=== PATIENT | male | born 1965 | race Caucasian/White ===

== ENCOUNTER 2021-03-31 06:41 | Outpatient (CLI) | payer SELFPAY ==
[2021-03-31 08:06] LABS: Alanine Aminotransferase 27 U/L (4-50); Albumin Level 4.4 g/dL (3.5-5.1); Alkaline Phosphatase 35 U/L (38-126); Anion Gap 10 mmol/L (8-16); Aspartate Amino Transferase 36 U/L (17-59); Bilirubin,Total 1.4 mg/dL (0.2-1.3); Blood Urea Nitrogen 18 mg/dL (9-20); Calcium 9.2 mg/dL (8.4-10.2); Carbon Dioxide 24 mmol/L (22-30); Chloride 104 mmol/L (98-107); Cholesterol 197 mg/dL (0-200); Estimated Glomerular Filt Rate > 60; Glucose 90 mg/dL (75-110); HDL Direct 46 mg/dL; LDL Cholesterol Direct 118 mg/dL; Sodium 138 mmol/L (137-145); Triglycerides 132 mg/dL (<150)
[2021-03-31 08:20] LABS: Potassium 4.6 mmol/L (3.4-5.0)
== END 2021-03-31 06:42 | disposition home or self-care (01) ==
PROVIDERS: Visit Provider Internal Medicine Cardiovascular Disease
DX: I42.8 Other cardiomyopathies (principal); E66.9 Obesity, unspecified
CPT/HCPCS: 36415; 80053; 80061

== ENCOUNTER 2023-09-06 07:13 | Outpatient (CLI) | payer SELFPAY ==
[2023-09-06 08:32] LABS: Alanine Aminotransferase 26 U/L (6-50); Albumin Level 4.5 g/dL (3.5-5.1); Alkaline Phosphatase 45 U/L (38-126); Anion Gap 8 mmol/L (8-16); Aspartate Amino Transferase 31 U/L (17-59); Bilirubin,Total 1.3 mg/dL (0.2-1.3); Blood Urea Nitrogen 19 mg/dL (9-20); Calcium 9.2 mg/dL (8.4-10.2); Carbon Dioxide 28 mmol/L (22-30); Chloride 104 mmol/L (98-107); Cholesterol 248 mg/dL (0-200); Estimated Glomerular Filt Rate > 60; Glucose 101 mg/dL (65-110); HDL Direct 43 mg/dL; Potassium 4.3 mmol/L (3.4-5.0); Sodium 140 mmol/L (137-145); Triglycerides 104 mg/dL (<150)
[2023-09-06 08:43] LABS: LDL Cholesterol Direct 147 mg/dL
[2023-09-06 09:14] LABS: Thyroid Stimulating Hormone Reflex 0.854 uIU/mL (0.465-4.68)
== END 2023-09-06 07:14 | disposition home or self-care (01) ==
LOC: ANHLAB 07:13
PROVIDERS: Visit Provider Internal Medicine Cardiovascular Disease
DX: I42.8 Other cardiomyopathies (principal)
CPT/HCPCS: 36415; 80053; 80061; 84443

== ENCOUNTER 2024-11-17 10:45 | Inpatient (IN) | payer SELFPAY ==
[2024-11-17] VITALS (30 sets, daily range): BP systolic 156–192; BP diastolic 91–116; PULSE 91–113; RESP 15–30; TEMP 36.4–37; O2SAT 91–99; BMI 39.6
--- NOTE | ~2024-11-17 | XR_ITS ---
Clinical Indication: Shortness of breath PA and lateral views of the chest: Comparison: 12/24/2016 Findings: Hazy right upper lobe airspace disease present. Left lung clear. Cardiomediastinal silhoue tte is within normal limits. Bones and soft tissues are unremarkable. Impression: Right upper lobe pneumonia. Reviewed, dictated and finalized at [facility]. 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
--- NOTE | ~2024-11-17 | CT_ITS ---
EXAMINATION: CTA chest PE protocol DATE: 11/17/2024 15:15 INDICATION: elev dimer; possible hemoptysis TECHNIQUE: Computed tomography angiography (CTA) of the chest was performed with 100 mL Omnipaque-350 intravenous contrast timed to evaluate the pulmonary arteries. Coronal maximum intensity projection 3D-reconstructions were created by the technologist. The dose-length product (DLP) was 1057.63 mGy-cm . Automated exposure control and iterative reconstruction technique were employed. COMPARISON: 12/24/2016; x-ray chest 11/17/2024. FINDINGS: Lung parenchyma and airways: Acinar opacities in the right upper and middle lobes. Dependent left low er lobe atelectasis. Patent airways. Pleura: Small bilateral pleural fluid collections. Thoracic inlet, axillae and chest wall: Unremarkable. Thoracic aorta: No significant dilation. No dissection. Mild arch calcification. Mediastinum: Mildly dilated central pulmonary arteries as can be seen with pulmonary arterial hyperte nsion. Enlarged right paratracheal node. Heart and pericardium: Cardiomegaly. Coronary artery calcifications: Mild. Upper abdomen: No significant finding. Bones: No acute osseous finding. Pulmonary arteries: Study quality: Adequate. No pulmonary emboli detected. IMPRESSION: No CT evidence of acute pulmonary embolus. Right upper and middle lobe opacities likely representing infection and/or aspiration. Mediastinal ly mphadenopathy. Small bilateral pleural effusions. Reviewed, dictated and finalized at location [facility]. DISPATCHER IMPRESSION: No CT evidence of acute pulmonary embolus. Right upper and middle lobe opacities likely representing infection and/or aspi ration. Mediastinal lymphadenopathy. Small bilateral pleural effusions.
--- NOTE | 2024-11-17 12:16 | ED.SOB ---
HPI - SOB/Dyspnea General Chief Complaint: Shortness of Breath/Dyspnea <Katy Barajas PA-C - Last Filed: 11/17/24 12:23> Stated Complaint: I feel like I have pneumonia <Katy Barajas PA-C - Last Filed: 11/17/24 12:23> Time Seen by Provider: 11/17/24 13:57 <Katy Barajas PA-C - Last Filed: 11/17/24 12:23> Focused HPI: 59 y/o M with a hx CHF, HTN presents to the ED for exertional dyspnea and productive cough for 2 days. No history of COPD or asthma. He does not smoke. Denies chest pain or fever, nausea or vomiting. Denies lower extremity edema, history of VTE, hemoptysis. GENERAL: Well-appearing, well-nourished, and in no acute distress. HEAD: Normocephalic, atraumatic. CHEST: Coarse breath sounds in the left lower lung field. No respiratory distress HEART: Regular rate and rhythm.? NEURO: ?Alert and oriented x3. Patient screened in triage and initial orders placed.? ?Additional care and disposition to be based upon?diagnostic testing and treatment. <Katy Barajas PA-C - Last Filed: 11/17/24 12:23> Source: patient and family <Tana Chu MD - Last Filed: 11/19/24 06:27> Mode of arrival: ambulatory <Tana Chu MD - Last Filed: 11/19/24 06:27> Limitations: no limitations <Tana Chu MD - Last Filed: 11/19/24 06:27> History of Present Illness HPI Narrative: Concur with the above the following additions/corrections: Patient presents with concern that he could have pneumonia based on the fact that he has had a cough and shortness of breath for the past 2 days. The cough has been productive of sputum. He does not know if he has had hemoptysis because when he coughs there has been some discoloration of the sputum that has been slightly reddish sure brown in color. He had attributed this to the fact that he had been drinking a special tea made of cloves and cinnamon and elderberry but could not be certain. No underlying respiratory conditions and has never had pneumonia before to his knowledge. He does have a history of hypertension but has not been taking his medications. He has had a subjective fever but when his temperature was measured at home he was not febrile. No history of a DVT or PE. Denies any chest pain. He did have congestive heart failure once approximately 7 years ago but states that there was resolution of this. His last cardiac catheterization was with Dr Fajardo at that time. <Tana Chu MD - Last Filed: 11/19/24 06:27> Related Data Home Medications: Home Medications ?Medication ?Instructions ?Recorded ?Confirmed ?Last Taken ?Type No Home Medications 11/17/24 11/17/24 Unknown History <Katy Barajas PA-C - Last Filed: 11/17/24 12:23> Allergies/Adverse Reactions: Allergies Allergy/AdvReac Type Severity Reaction Status Date / Time poison mateo extract Allergy Intermediate HIVES Verified 08/19/24 15:08 poison oak extract Allergy Unknown Unknown Verified 08/19/24 15:08 <Katy Barajas PA-C - Last Filed: 11/17/24 12:23> FOR[facility]LY [facility] Past Medical History Medical History: Medical History Hypertension Heart failure diagnosed approximately 2017 <Katy Barajas PA-C - Last Filed: 11/17/24 12:23> Surgical History Surgical History: Surgical History History of cardiac cath approx 2017 H/O lumbar discectomy <Katy Barajas PA-C - Last Filed: 11/17/24 12:23> Social History Social History: Social History Smoking status: Never smoker Alcohol intake: current Drinks per week: 1 Substance use: never Substance use type: does not use Do You Feel Safe in your Home?: Yes Lack of Transportation: No Lack of Food: Never True Current Housing: I Have Housing Concerned About Future Housing: No Difficulty Paying Gas/Electric Bills: No Difficulty Paying for Meds: No Currently Unemployed: No Education: High School Diploma/GED Difficulty w/ Childcare or Family Care: No Living arrangements: with family Spiritual care concerns: No <Katy Barajas PA-C - Last Filed: 11/17/24 12:23> Exam Narrative: GENERAL: Well-appearing, well-nourished, and in no acute distress. HEAD: Normocephalic, atraumatic. EYES: Non injected, non icteric ENT: Nares clear, no rhinorrhea or epistaxis. NECK: Supple. CHEST: Speaking in full sentences. No respiratory distress. Lungs clear to auscultation bilaterally without wheezes or crackles. HEART: Tachycardic rate and rhythm. . ABDOMEN: Soft, nondistended. EXTREMITIES: Normal range of motion. No lower extremity edema. SKIN: Warm, dry, no rash. NEURO: No focal deficits. Alert and oriented x3. PSYCH: Normal mood and affect. <Tana Chu MD - Last Filed: 11/19/24 06:27> Course Vital Signs Vital signs: Vital Signs Temperature 97.6 F 11/17/24 10:49 Pulse Rate 113 H 11/17/24 10:49 Respiratory Rate 16 11/17/24 10:49 Blood Pressure 163/100 H 11/17/24 10:49 Pulse Oximetry 94 11/17/24 10:49 Temperature 98.8 F 11/19/24 04:09 Pulse Rate 72 11/19/24 06:00 Respiratory Rate 18 11/19/24 04:09 Blood Pressure 118/66 11/19/24 04:09 Pulse Oximetry 98 11/19/24 04:09 Oxygen Delivery Room Air 11/19/24 04:00 <Katy Barajas PA-C - Last Filed: 11/17/24 12:23> Vital Signs Temperature 97.6 F 11/17/24 10:49 Pulse Rate 113 H 11/17/24 10:49 Respiratory Rate 16 11/17/24 10:49 Blood Pressure 163/100 H 11/17/24 10:49 Pulse Oximetry 94 11/17/24 10:49 Temperature 98.8 F 11/19/24 04:09 Pulse Rate 72 11/19/24 06:00 Respiratory Rate 18 11/19/24 04:09 Blood Pressure 118/66 11/19/24 04:09 Pulse Oximetry 98 11/19/24 04:09 Oxygen Delivery Room Air 11/19/24 04:00 <Tana Chu MD - Last Filed: 11/19/24 06:27> MDM - SOB/Dyspnea MDM Narrative Medical decision making narrative: Patient presents with concern that he might have pneumonia given he has had a cough and shortness of breath for 2 days. In the emergency department he is afebrile signs notable for tachycardia and hypertension. Attempted to use YEARS Algorithm given Dimer elevated but <1 however patient can not exclude hemoptysis as they have been coughing with reddish tinged sputum (possibly felt to be due to the color of the tea drinking). CT PE study ordered. Patient has an NSTEMI with elevated troponin. Repeat troponin and 324 aspirin ordered. Leukocytosis and thrombocytosis. Evidence of pneumonia initially on chest x-ray and with better differentiation on CT. 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 BNP is elevated but patient otherwise does not appear to be volume overloaded both on chest x-ray or on physical exam. He is without chest pain. Given the elevated troponin, patient will require admission. This is discussed with him and he is amenable. Discussed with on-call hospitalist. Will require IMU for NSTEMI. <Tana Chu MD - Last Filed: 11/19/24 06:27> Differential Diagnosis Differential diagnosis: Likely congestive heart failure, community acquired pneumonia, pulmonary embolism and other (ACS) <Tana Chu MD - Last Filed: 11/19/24 06:27> Lab Data Attestation: I reviewed the patient's lab results. <Tana Chu MD - Last Filed: 11/19/24 06:27> Lab results narrative: Trace ketonuria <Tana Chu MD - Last Filed: 11/19/24 06:27> Result diagrams: 11/19/24 04:27 11/19/24 04:27 <Katy Barajas PA-C - Last Filed: 11/17/24 12:23> Labs: Lab Results 11/17/24 11/17/24 11/17/24 Range/Units 12:57 13:16 13:16 WBC 15.8 H (4.5-10.0) K/mm3 RBC 5.89 (4.6-6.20) M/mm3 Hgb 16.6 (14.0-18.0) g/dL Hct 50.1 (42.0-52.0) % MCV 85.1 (80-100) fl MCH 28.2 (26-34) pg MCHC 33.1 (32-36) g/dl RDW 14.1 (11.5-14.5) % Plt Count 381 H (150-375) k/mm3 MPV 10.3 (7.4-10.4) fl Immature Gran % (Auto) 0.4 (0-0.5) % Neut % (Auto) 86.7 H (45.5-73.1) % Lymph % (Auto) 6.2 L (18.3-44.2) % [place] % (Auto) 6.1 (2.6-8.5) % Eos % (Auto) 0.1 (0-4.4) % Baso % (Auto) 0.5 (0.2-1.2) % Lymph # (Auto) 0.97 (0.9-3.2) K/mm3 [place] # (Auto) 1.0 H (0.1-0.6) K/mm3 Eos # (Auto) 0.0 (0-0.3) K/mm3 Baso # (Auto) 0.1 (0.0-0.1) K/mm3 Abs Immat Gran (auto) 0.06 H (0.00-0.031) K/mm3 Absolute Neuts (auto) 13.7 H (1.3-6.7) K/mm3 Absolute Nucleated RBC 0.000 (0.0-0.012) K/mm3 Nucleated RBC % 0.0 (0.0-0.2) % PT 13.0 (11.1-14.7) Seconds INR 0.9 APTT 25.6 (22.3-36.8) Seconds D-Dimer 0.92 H (<0.48) ug/mL Sodium Cancelled 136 L Potassium Cancelled Chloride Carbon Dioxide Anion Gap BUN Creatinine Estim Creat Clear Calc Estimated GFR Glucose Calcium Magnesium (1.6-2.3) mg/dL Total Bilirubin AST ALT Alkaline Phosphatase Troponin I (0.000-0.034) ng/mL NT-Pro-B Natriuret Pep Total Protein Albumin Urine Color (Yellow) Urine Appearance (Clear) Urine pH (5.0-9.0) Ur Specific [place] (1.001-1.035) Urine Protein (Negative) mg/dL Urine Glucose (UA) (Negative) mg/dL Urine Ketones (Negative) mg/dL Ur Blood (Man) (Negative) Urine Nitrate (Negative) Urine Bilirubin (Negative) Urine Urobilinogen (<2.0) mg/dL Leukocyte Esterase Rfl (Negative) BLUE/UL Urine RBC (0-2) /hpf Urine WBC (0-3) /hpf Ur Squamous Epith Cells (Few) /hpf Urine Bacteria /hpf Urine Casts Influenza A (RT-PCR) Negative (Negative) Influenza B (RT-PCR) Negative (Negative) RSV (RT-PCR) Negative (Negative) SARS-CoV-2 RNA (RT-PCR) Negative (Negative) 11/17/24 11/17/24 11/17/24 Range/Units 13:16 13:16 13:16 WBC (4.5-10.0) K/mm3 RBC (4.6-6.20) M/mm3 Hgb (14.0-18.0) g/dL Hct (42.0-52.0) % MCV (80-100) fl MCH (26-34) pg MCHC (32-36) g/dl RDW (11.5-14.5) % Plt Count (150-375) k/mm3 MPV (7.4-10.4) fl Immature Gran % (Auto) (0-0.5) % Neut % (Auto) (45.5-73.1) % Lymph % (Auto) (18.3-44.2) % [place] % (Auto) (2.6-8.5) % Eos % (Auto) (0-4.4) % Baso % (Auto) (0.2-1.2) % Lymph # (Auto) (0.9-3.2) K/mm3 [place] # (Auto) (0.1-0.6) K/mm3 Eos # (Auto) (0-0.3) K/mm3 Baso # (Auto) (0.0-0.1) K/mm3 Abs Immat Gran (auto) (0.00-0.031) K/mm3 Absolute Neuts (auto) (1.3-6.7) K/mm3 Absolute Nucleated RBC (0.0-0.012) K/mm3 Nucleated RBC % (0.0-0.2) % PT (11.1-14.7) Seconds INR APTT (22.3-36.8) Seconds D-Dimer (<0.48) ug/mL Sodium Potassium 4.3 Chloride Cancelled 106 Carbon Dioxide Cancelled 25 Anion Gap Cancelled BUN Creatinine Estim Creat Clear Calc Estimated GFR Glucose Calcium Magnesium (1.6-2.3) mg/dL Total Bilirubin AST ALT Alkaline Phosphatase Troponin I (0.000-0.034) ng/mL NT-Pro-B Natriuret Pep Total Protein Albumin Urine Color (Yellow) Urine Appearance (Clear) Urine pH (5.0-9.0) Ur Specific [place] (1.001-1.035) Urine Protein (Negative) mg/dL Urine Glucose (UA) (Negative) mg/dL Urine Ketones (Negative) mg/dL Ur Blood (Man) (Negative) Urine Nitrate (Negative) Urine Bilirubin (Negative) Urine Urobilinogen (<2.0) mg/dL Leukocyte Esterase Rfl (Negative) BLUE/UL Urine RBC (0-2) /hpf Urine WBC (0-3) /hpf Ur Squamous Epith Cells (Few) /hpf Urine Bacteria /hpf Urine Casts Influenza A (RT-PCR) (Negative) Influenza B (RT-PCR) (Negative) RSV (RT-PCR) (Negative) SARS-CoV-2 RNA (RT-PCR) (Negative) 11/17/24 11/17/24 11/17/24 Range/Units 13:16 13:16 13:16 WBC (4.5-10.0) K/mm3 RBC (4.6-6.20) M/mm3 Hgb (14.0-18.0) g/dL Hct (42.0-52.0) % MCV (80-100) fl MCH (26-34) pg MCHC (32-36) g/dl RDW (11.5-14.5) % Plt Count (150-375) k/mm3 MPV (7.4-10.4) fl Immature Gran % (Auto) (0-0.5) % Neut % (Auto) (45.5-73.1) % Lymph % (Auto) (18.3-44.2) % [place] % (Auto) (2.6-8.5) % Eos % (Auto) (0-4.4) % Baso % (Auto) (0.2-1.2) % Lymph # (Auto) (0.9-3.2) K/mm3 [place] # (Auto) (0.1-0.6) K/mm3 Eos # (Auto) (0-0.3) K/mm3 Baso # (Auto) (0.0-0.1) K/mm3 Abs Immat Gran (auto) (0.00-0.031) K/mm3 Absolute Neuts (auto) (1.3-6.7) K/mm3 Absolute Nucleated RBC (0.0-0.012) K/mm3 Nucleated RBC % (0.0-0.2) % PT (11.1-14.7) Seconds INR APTT (22.3-36.8) Seconds D-Dimer (<0.48) ug/mL Sodium Potassium Chloride Carbon Dioxide Anion Gap 5 BUN Cancelled 20 Creatinine Cancelled 0.90 Estim Creat Clear Calc Cancelled Estimated GFR Glucose Calcium Magnesium (1.6-2.3) mg/dL Total Bilirubin AST ALT Alkaline Phosphatase Troponin I (0.000-0.034) ng/mL NT-Pro-B Natriuret Pep Total Protein Albumin Urine Color (Yellow) Urine Appearance (Clear) Urine pH (5.0-9.0) Ur Specific [place] (1.001-1.035) Urine Protein (Negative) mg/dL Urine Glucose (UA) (Negative) mg/dL Urine Ketones (Negative) mg/dL Ur Blood (Man) (Negative) Urine Nitrate (Negative) Urine Bilirubin (Negative) Urine Urobilinogen (<2.0) mg/dL Leukocyte Esterase Rfl (Negative) BLUE/UL Urine RBC (0-2) /hpf Urine WBC (0-3) /hpf Ur Squamous Epith Cells (Few) /hpf Urine Bacteria /hpf Urine Casts Influenza A (RT-PCR) (Negative) Influenza B (RT-PCR) (Negative) RSV (RT-PCR) (Negative) SARS-CoV-2 RNA (RT-PCR) (Negative) 11/17/24 11/17/24 11/17/24 Range/Units 13:16 13:16 13:16 WBC (4.5-10.0) K/mm3 RBC (4.6-6.20) M/mm3 Hgb (14.0-18.0) g/dL Hct (42.0-52.0) % MCV (80-100) fl MCH (26-34) pg MCHC (32-36) g/dl RDW (11.5-14.5) % Plt Count (150-375) k/mm3 MPV (7.4-10.4) fl Immature Gran % (Auto) (0-0.5) % Neut % (Auto) (45.5-73.1) % Lymph % (Auto) (18.3-44.2) % [place] % (Auto) (2.6-8.5) % Eos % (Auto) (0-4.4) % Baso % (Auto) (0.2-1.2) % Lymph # (Auto) (0.9-3.2) K/mm3 [place] # (Auto) (0.1-0.6) K/mm3 Eos # (Auto) (0-0.3) K/mm3 Baso # (Auto) (0.0-0.1) K/mm3 Abs Immat Gran (auto) (0.00-0.031) K/mm3 Absolute Neuts (auto) (1.3-6.7) K/mm3 Absolute Nucleated RBC (0.0-0.012) K/mm3 Nucleated RBC % (0.0-0.2) % PT (11.1-14.7) Seconds INR APTT (22.3-36.8) Seconds D-Dimer (<0.48) ug/mL Sodium Potassium Chloride Carbon Dioxide Anion Gap BUN Creatinine Estim Creat Clear Calc 89 Estimated GFR Cancelled > 60 Glucose Cancelled 103 Calcium Cancelled Magnesium (1.6-2.3) mg/dL Total Bilirubin AST ALT Alkaline Phosphatase Troponin I (0.000-0.034) ng/mL NT-Pro-B Natriuret Pep Total Protein Albumin Urine Color (Yellow) Urine Appearance (Clear) Urine pH (5.0-9.0) Ur Specific [place] (1.001-1.035) Urine Protein (Negative) mg/dL Urine Glucose (UA) (Negative) mg/dL Urine Ketones (Negative) mg/dL Ur Blood (Man) (Negative) Urine Nitrate (Negative) Urine Bilirubin (Negative) Urine Urobilinogen (<2.0) mg/dL Leukocyte Esterase Rfl (Negative) BLUE/UL Urine RBC (0-2) /hpf Urine WBC (0-3) /hpf Ur Squamous Epith Cells (Few) /hpf Urine Bacteria /hpf Urine Casts Influenza A (RT-PCR) (Negative) Influenza B (RT-PCR) (Negative) RSV (RT-PCR) (Negative) SARS-CoV-2 RNA (RT-PCR) (Negative) 11/17/24 11/17/24 11/17/24 Range/Units 13:16 13:16 13:16 WBC (4.5-10.0) K/mm3 RBC (4.6-6.20) M/mm3 Hgb (14.0-18.0) g/dL Hct (42.0-52.0) % MCV (80-100) fl MCH (26-34) pg MCHC (32-36) g/dl RDW (11.5-14.5) % Plt Count (150-375) k/mm3 MPV (7.4-10.4) fl Immature Gran % (Auto) (0-0.5) % Neut % (Auto) (45.5-73.1) % Lymph % (Auto) (18.3-44.2) % [place] % (Auto) (2.6-8.5) % Eos % (Auto) (0-4.4) % Baso % (Auto) (0.2-1.2) % Lymph # (Auto) (0.9-3.2) K/mm3 [place] # (Auto) (0.1-0.6) K/mm3 Eos # (Auto) (0-0.3) K/mm3 Baso # (Auto) (0.0-0.1) K/mm3 Abs Immat Gran (auto) (0.00-0.031) K/mm3 Absolute Neuts (auto) (1.3-6.7) K/mm3 Absolute Nucleated RBC (0.0-0.012) K/mm3 Nucleated RBC % (0.0-0.2) % PT (11.1-14.7) Seconds INR APTT (22.3-36.8) Seconds D-Dimer (<0.48) ug/mL Sodium Potassium Chloride Carbon Dioxide Anion Gap BUN Creatinine Estim Creat Clear Calc Estimated GFR Glucose Calcium 9.3 Magnesium 1.9 (1.6-2.3) mg/dL Total Bilirubin Cancelled 1.9 H AST Cancelled 30 ALT Cancelled Alkaline Phosphatase Troponin I (0.000-0.034) ng/mL NT-Pro-B Natriuret Pep Total Protein Albumin Urine Color (Yellow) Urine Appearance (Clear) Urine pH (5.0-9.0) Ur Specific [place] (1.001-1.035) Urine Protein (Negative) mg/dL Urine Glucose (UA) (Negative) mg/dL Urine Ketones (Negative) mg/dL Ur Blood (Man) (Negative) Urine Nitrate (Negative) Urine Bilirubin (Negative) Urine Urobilinogen (<2.0) mg/dL Leukocyte Esterase Rfl (Negative) BLUE/UL Urine RBC (0-2) /hpf Urine WBC (0-3) /hpf Ur Squamous Epith Cells (Few) /hpf Urine Bacteria /hpf Urine Casts Influenza A (RT-PCR) (Negative) Influenza B (RT-PCR) (Negative) RSV (RT-PCR) (Negative) SARS-CoV-2 RNA (RT-PCR) (Negative) 11/17/24 11/17/2411/17/24 Range/Units 13:16 13:16 13:16 WBC (4.5-10.0) K/mm3 RBC (4.6-6.20) M/mm3 Hgb (14.0-18.0) g/dL Hct (42.0-52.0) % MCV (80-100) fl MCH (26-34) pg MCHC (32-36) g/dl RDW (11.5-14.5) % Plt Count (150-375) k/mm3 MPV (7.4-10.4) fl Immature Gran % (Auto) (0-0.5) % Neut % (Auto) (45.5-73.1) % Lymph % (Auto) (18.3-44.2) % [place] % (Auto) (2.6-8.5) % Eos % (Auto) (0-4.4) % Baso % (Auto) (0.2-1.2) % Lymph # (Auto) (0.9-3.2) K/mm3 [place] # (Auto) (0.1-0.6) K/mm3 Eos # (Auto) (0-0.3) K/mm3 Baso # (Auto) (0.0-0.1) K/mm3 Abs Immat Gran (auto) (0.00-0.031) K/mm3 Absolute Neuts (auto) (1.3-6.7) K/mm3 Absolute Nucleated RBC (0.0-0.012) K/mm3 Nucleated RBC % (0.0-0.2) % PT (11.1-14.7) Seconds INR APTT (22.3-36.8) Seconds D-Dimer (<0.48) ug/mL Sodium Potassium Chloride Carbon Dioxide Anion Gap BUN Creatinine Estim Creat Clear Calc Estimated GFR Glucose Calcium Magnesium (1.6-2.3) mg/dL Total Bilirubin AST ALT 23 Alkaline Phosphatase Cancelled 69 Troponin I 0.142 H* (0.000-0.034) ng/mL NT-Pro-B Natriuret Pep Cancelled 4390 H Total Protein Cancelled Albumin Urine Color (Yellow) Urine Appearance (Clear) Urine pH (5.0-9.0) Ur Specific [place] (1.001-1.035) Urine Protein (Negative) mg/dL Urine Glucose (UA) (Negative) mg/dL Urine Ketones (Negative) mg/dL Ur Blood (Man) (Negative) Urine Nitrate (Negative) Urine Bilirubin (Negative) Urine Urobilinogen (<2.0) mg/dL Leukocyte Esterase Rfl (Negative) BLUE/UL Urine RBC (0-2) /hpf Urine WBC (0-3) /hpf Ur Squamous Epith Cells (Few) /hpf Urine Bacteria /hpf Urine Casts Influenza A (RT-PCR) (Negative) Influenza B (RT-PCR) (Negative) RSV (RT-PCR) (Negative) SARS-CoV-2 RNA (RT-PCR) (Negative) 11/17/24 11/17/24 11/17/24 Range/Units 13:16 13:16 15:07 WBC (4.5-10.0) K/mm3 RBC (4.6-6.20) M/mm3 Hgb (14.0-18.0) g/dL Hct (42.0-52.0) % MCV (80-100) fl MCH (26-34) pg MCHC (32-36) g/dl RDW (11.5-14.5) % Plt Count (150-375) k/mm3 MPV (7.4-10.4) fl Immature Gran % (Auto) (0-0.5) % Neut % (Auto) (45.5-73.1) % Lymph % (Auto) (18.3-44.2) % [place] % (Auto) (2.6-8.5) % Eos % (Auto) (0-4.4) % Baso % (Auto) (0.2-1.2) % Lymph # (Auto) (0.9-3.2) K/mm3 [place] # (Auto) (0.1-0.6) K/mm3 Eos # (Auto) (0-0.3) K/mm3 Baso # (Auto) (0.0-0.1) K/mm3 Abs Immat Gran (auto) (0.00-0.031) K/mm3 Absolute Neuts (auto) (1.3-6.7) K/mm3 Absolute Nucleated RBC (0.0-0.012) K/mm3 Nucleated RBC % (0.0-0.2) % PT (11.1-14.7) Seconds INR APTT (22.3-36.8) Seconds D-Dimer (<0.48) ug/mL Sodium Potassium Chloride Carbon Dioxide Anion Gap BUN Creatinine Estim Creat Clear Calc Estimated GFR Glucose Calcium Magnesium (1.6-2.3) mg/dL Total Bilirubin AST ALT Alkaline Phosphatase Troponin I (0.000-0.034) ng/mL NT-Pro-B Natriuret Pep Total Protein 8.0 Albumin Cancelled 4.3 Urine Color Yellow (Yellow) Urine Appearance Clear (Clear) Urine pH 6.5 (5.0-9.0) Ur Specific [place] 1.016 (1.001-1.035) Urine Protein Trace (Negative) mg/dL Urine Glucose (UA) Negative (Negative) mg/dL Urine Ketones Trace H (Negative) mg/dL Ur Blood (Man) Negative (Negative) Urine Nitrate Negative (Negative) Urine Bilirubin Negative (Negative) Urine Urobilinogen 0.2 (<2.0) mg/dL Leukocyte Esterase Rfl Negative (Negative) BLUE/UL Urine RBC 0-2 (0-2) /hpf Urine WBC 0-5 (0-3) /hpf Ur Squamous Epith Cells None seen (Few) /hpf Urine Bacteria None seen /hpf Urine Casts 0-2 Influenza A (RT-PCR) (Negative) Influenza B (RT-PCR) (Negative) RSV (RT-PCR) (Negative) SARS-CoV-2 RNA (RT-PCR) (Negative) 11/17/24 Range/Units 16:56 WBC (4.5-10.0) K/mm3 RBC (4.6-6.20) M/mm3 Hgb (14.0-18.0) g/dL Hct (42.0-52.0) % MCV (80-100) fl MCH (26-34) pg MCHC (32-36) g/dl RDW (11.5-14.5) % Plt Count (150-375) k/mm3 MPV (7.4-10.4) fl Immature Gran % (Auto) (0-0.5) % Neut % (Auto) (45.5-73.1) % Lymph % (Auto) (18.3-44.2) % [place] % (Auto) (2.6-8.5) % Eos % (Auto) (0-4.4) % Baso % (Auto) (0.2-1.2) % Lymph # (Auto) (0.9-3.2) K/mm3 [place] # (Auto) (0.1-0.6) K/mm3 Eos # (Auto) (0-0.3) K/mm3 Baso # (Auto) (0.0-0.1) K/mm3 Abs Immat Gran (auto) (0.00-0.031) K/mm3 Absolute Neuts (auto) (1.3-6.7) K/mm3 Absolute Nucleated RBC (0.0-0.012) K/mm3 Nucleated RBC % (0.0-0.2) % PT (11.1-14.7) Seconds INR APTT (22.3-36.8) Seconds D-Dimer (<0.48) ug/mL Sodium Potassium Chloride Carbon Dioxide Anion Gap BUN Creatinine Estim Creat Clear Calc Estimated GFR Glucose Calcium Magnesium (1.6-2.3) mg/dL Total Bilirubin AST ALT Alkaline Phosphatase Troponin I 0.128 H* (0.000-0.034) ng/mL NT-Pro-B Natriuret Pep Total Protein Albumin Urine Color (Yellow) Urine Appearance (Clear) Urine pH (5.0-9.0) Ur Specific [place] (1.001-1.035) Urine Protein (Negative) mg/dL Urine Glucose (UA) (Negative) mg/dL Urine Ketones (Negative) mg/dL Ur Blood (Man) (Negative) Urine Nitrate (Negative) Urine Bilirubin (Negative) Urine Urobilinogen (<2.0) mg/dL Leukocyte Esterase Rfl (Negative) BLUE/UL Urine RBC (0-2) /hpf Urine WBC (0-3) /hpf Ur Squamous Epith Cells (Few) /hpf Urine Bacteria /hpf Urine Casts Influenza A (RT-PCR) (Negative) Influenza B (RT-PCR) (Negative) RSV (RT-PCR) (Negative) SARS-CoV-2 RNA (RT-PCR) (Negative) <Katy Barajas PA-C - Last Filed: 11/17/24 12:23> Lab Results 11/17/24 11/17/24 11/17/24 Range/Units 12:57 13:16 13:16 WBC 15.8 H (4.5-10.0) K/mm3 RBC 5.89 (4.6-6.20) M/mm3 Hgb 16.6 (14.0-18.0) g/dL Hct 50.1 (42.0-52.0) % MCV 85.1 (80-100) fl MCH 28.2 (26-34) pg MCHC 33.1 (32-36) g/dl RDW 14.1 (11.5-14.5) % Plt Count 381 H (150-375) k/mm3 MPV 10.3 (7.4-10.4) fl Immature Gran % (Auto) 0.4 (0-0.5) % Neut % (Auto) 86.7 H (45.5-73.1) % Lymph % (Auto) 6.2 L (18.3-44.2) % [place] % (Auto) 6.1 (2.6-8.5) % Eos % (Auto) 0.1 (0-4.4) % Baso % (Auto) 0.5 (0.2-1.2) % Lymph # (Auto) 0.97 (0.9-3.2) K/mm3 [place] # (Auto) 1.0 H (0.1-0.6) K/mm3 Eos # (Auto) 0.0 (0-0.3) K/mm3 Baso # (Auto) 0.1 (0.0-0.1) K/mm3 Abs Immat Gran (auto) 0.06 H (0.00-0.031) K/mm3 Absolute Neuts (auto) 13.7 H (1.3-6.7) K/mm3 Absolute Nucleated RBC 0.000 (0.0-0.012) K/mm3 Nucleated RBC % 0.0 (0.0-0.2) % PT 13.0 (11.1-14.7) Seconds INR 0.9 APTT 25.6 (22.3-36.8) Seconds D-Dimer 0.92 H (<0.48) ug/mL Sodium Cancelled 136 L Potassium Cancelled Chloride Carbon Dioxide Anion Gap BUN Creatinine Estim Creat Clear Calc Estimated GFR Glucose Calcium Magnesium (1.6-2.3) mg/dL Total Bilirubin AST ALT Alkaline Phosphatase Troponin I (0.000-0.034) ng/mL NT-Pro-B Natriuret Pep Total Protein Albumin Urine Color (Yellow) Urine Appearance (Clear) Urine pH (5.0-9.0) Ur Specific [place] (1.001-1.035) Urine Protein (Negative) mg/dL Urine Glucose (UA) (Negative) mg/dL Urine Ketones (Negative) mg/dL Ur Blood (Man) (Negative) Urine Nitrate (Negative) Urine Bilirubin (Negative) Urine Urobilinogen (<2.0) mg/dL Leukocyte Esterase Rfl (Negative) BLUE/UL Urine RBC (0-2) /hpf Urine WBC (0-3) /hpf Ur Squamous Epith Cells (Few) /hpf Urine Bacteria /hpf Urine Casts Influenza A (RT-PCR) Negative (Negative) Influenza B (RT-PCR) Negative (Negative) RSV (RT-PCR) Negative (Negative) SARS-CoV-2 RNA (RT-PCR) Negative (Negative) 11/17/24 11/17/24 11/17/24 Range/Units 13:16 13:16 13:16 WBC (4.5-10.0) K/mm3 RBC (4.6-6.20) M/mm3 Hgb (14.0-18.0) g/dL Hct (42.0-52.0) % MCV (80-100) fl MCH (26-34) pg MCHC (32-36) g/dl RDW (11.5-14.5) % Plt Count (150-375) k/mm3 MPV (7.4-10.4) fl Immature Gran % (Auto) (0-0.5) % Neut % (Auto) (45.5-73.1) % Lymph % (Auto) (18.3-44.2) % [place] % (Auto) (2.6-8.5) % Eos % (Auto) (0-4.4) % Baso % (Auto) (0.2-1.2) % Lymph # (Auto) (0.9-3.2) K/mm3 [place] # (Auto) (0.1-0.6) K/mm3 Eos # (Auto) (0-0.3) K/mm3 Baso # (Auto) (0.0-0.1) K/mm3 Abs Immat Gran (auto) (0.00-0.031) K/mm3 Absolute Neuts (auto) (1.3-6.7) K/mm3 Absolute Nucleated RBC (0.0-0.012) K/mm3 Nucleated RBC % (0.0-0.2) % PT (11.1-14.7) Seconds INR APTT (22.3-36.8) Seconds D-Dimer (<0.48) ug/mL Sodium Potassium 4.3 Chloride Cancelled 106 Carbon Dioxide Cancelled 25 Anion Gap Cancelled BUN Creatinine Estim Creat Clear Calc Estimated GFR Glucose Calcium Magnesium (1.6-2.3) mg/dL Total Bilirubin AST ALT Alkaline Phosphatase Troponin I (0.000-0.034) ng/mL NT-Pro-B Natriuret Pep Total Protein Albumin Urine Color (Yellow) Urine Appearance (Clear) Urine pH (5.0-9.0) Ur Specific [place] (1.001-1.035) Urine Protein (Negative) mg/dL Urine Glucose (UA) (Negative) mg/dL Urine Ketones (Negative) mg/dL Ur Blood (Man) (Negative) Urine Nitrate (Negative) Urine Bilirubin (Negative) Urine Urobilinogen (<2.0) mg/dL Leukocyte Esterase Rfl (Negative) BLUE/UL Urine RBC (0-2) /hpf Urine WBC (0-3) /hpf Ur Squamous Epith Cells (Few) /hpf Urine Bacteria /hpf Urine Casts Influenza A (RT-PCR) (Negative) Influenza B (RT-PCR) (Negative) RSV (RT-PCR) (Negative) SARS-CoV-2 RNA (RT-PCR) (Negative) 11/17/24 11/17/24 11/17/24 Range/Units 13:16 13:16 13:16 WBC (4.5-10.0) K/mm3 RBC (4.6-6.20) M/mm3 Hgb (14.0-18.0) g/dL Hct (42.0-52.0) % MCV (80-100) fl MCH (26-34) pg MCHC (32-36) g/dl RDW (11.5-14.5) % Plt Count (150-375) k/mm3 MPV (7.4-10.4) fl Immature Gran % (Auto) (0-0.5) % Neut % (Auto) (45.5-73.1) % Lymph % (Auto) (18.3-44.2) % [place] % (Auto) (2.6-8.5) % Eos % (Auto) (0-4.4) % Baso % (Auto) (0.2-1.2) % Lymph # (Auto) (0.9-3.2) K/mm3 [place] # (Auto) (0.1-0.6) K/mm3 Eos # (Auto) (0-0.3) K/mm3 Baso # (Auto) (0.0-0.1) K/mm3 Abs Immat Gran (auto) (0.00-0.031) K/mm3 Absolute Neuts (auto) (1.3-6.7) K/mm3 Absolute Nucleated RBC (0.0-0.012) K/mm3 Nucleated RBC % (0.0-0.2) % PT (11.1-14.7) Seconds INR APTT (22.3-36.8) Seconds D-Dimer (<0.48) ug/mL Sodium Potassium Chloride Carbon Dioxide Anion Gap 5 BUN Cancelled 20 Creatinine Cancelled 0.90 Estim Creat Clear Calc Cancelled Estimated GFR Glucose Calcium Magnesium (1.6-2.3) mg/dL Total Bilirubin AST ALT Alkaline Phosphatase Troponin I (0.000-0.034) ng/mL NT-Pro-B Natriuret Pep Total Protein Albumin Urine Color (Yellow) Urine Appearance (Clear) Urine pH (5.0-9.0) Ur Specific [place] (1.001-1.035) Urine Protein (Negative) mg/dL Urine Glucose (UA) (Negative) mg/dL Urine Ketones (Negative) mg/dL Ur Blood (Man) (Negative) Urine Nitrate (Negative) Urine Bilirubin (Negative) Urine Urobilinogen (<2.0) mg/dL Leukocyte Esterase Rfl (Negative) BLUE/UL Urine RBC (0-2) /hpf Urine WBC (0-3) /hpf Ur Squamous Epith Cells (Few) /hpf Urine Bacteria /hpf Urine Casts Influenza A (RT-PCR) (Negative) Influenza B (RT-PCR) (Negative) RSV (RT-PCR) (Negative) SARS-CoV-2 RNA (RT-PCR) (Negative) 11/17/24 11/17/2424 Range/Units 13:16 13:16 13:16 WBC (4.5-10.0) K/mm3 RBC (4.6-6.20) M/mm3 Hgb (14.0-18.0) g/dL Hct (42.0-52.0) % MCV (80-100) fl MCH (26-34) pg MCHC (32-36) g/dl RDW (11.5-14.5) % Plt Count (150-375) k/mm3 MPV (7.4-10.4) fl Immature Gran % (Auto) (0-0.5) % Neut % (Auto) (45.5-73.1) % Lymph % (Auto) (18.3-44.2) % [place] % (Auto) (2.6-8.5) % Eos % (Auto) (0-4.4) % Baso % (Auto) (0.2-1.2) % Lymph # (Auto) (0.9-3.2) K/mm3 [place] # (Auto) (0.1-0.6) K/mm3 Eos # (Auto) (0-0.3) K/mm3 Baso # (Auto) (0.0-0.1) K/mm3 Abs Immat Gran (auto) (0.00-0.031) K/mm3 Absolute Neuts (auto) (1.3-6.7) K/mm3 Absolute Nucleated RBC (0.0-0.012) K/mm3 Nucleated RBC % (0.0-0.2) % PT (11.1-14.7) Seconds INR APTT (22.3-36.8) Seconds D-Dimer (<0.48) ug/mL Sodium Potassium Chloride Carbon Dioxide Anion Gap BUN Creatinine Estim Creat Clear Calc 89 Estimated GFR Cancelled > 60 Glucose Cancelled 103 Calcium Cancelled Magnesium (1.6-2.3) mg/dL Total Bilirubin AST ALT Alkaline Phosphatase Troponin I (0.000-0.034) ng/mL NT-Pro-B Natriuret Pep Total Protein Albumin Urine Color (Yellow) Urine Appearance (Clear) Urine pH (5.0-9.0) Ur Specific [place] (1.001-1.035) Urine Protein (Negative) mg/dL Urine Glucose (UA) (Negative) mg/dL Urine Ketones (Negative) mg/dL Ur Blood (Man) (Negative) Urine Nitrate (Negative) Urine Bilirubin (Negative) Urine Urobilinogen (<2.0) mg/dL Leukocyte Esterase Rfl (Negative) BLUE/UL Urine RBC (0-2) /hpf Urine WBC (0-3) /hpf Ur Squamous Epith Cells (Few) /hpf Urine Bacteria /hpf Urine Casts Influenza A (RT-PCR) (Negative) Influenza B (RT-PCR) (Negative) RSV (RT-PCR) (Negative) SARS-CoV-2 RNA (RT-PCR) (Negative) 11/17/24 11/17/24 11/17/24 Range/Units 13:16 13:16 13:16 WBC (4.5-10.0) K/mm3 RBC (4.6-6.20) M/mm3 Hgb (14.0-18.0) g/dL Hct (42.0-52.0) % MCV (80-100) fl MCH (26-34) pg MCHC (32-36) g/dl RDW (11.5-14.5) % Plt Count (150-375) k/mm3 MPV (7.4-10.4) fl Immature Gran % (Auto) (0-0.5) % Neut % (Auto) (45.5-73.1) % Lymph % (Auto) (18.3-44.2) % [place] % (Auto) (2.6-8.5) % Eos % (Auto) (0-4.4) % Baso % (Auto) (0.2-1.2) % Lymph # (Auto) (0.9-3.2) K/mm3 [place] # (Auto) (0.1-0.6) K/mm3 Eos # (Auto) (0-0.3) K/mm3 Baso # (Auto) (0.0-0.1) K/mm3 Abs Immat Gran (auto) (0.00-0.031) K/mm3 Absolute Neuts (auto) (1.3-6.7) K/mm3 Absolute Nucleated RBC (0.0-0.012) K/mm3 Nucleated RBC % (0.0-0.2) % PT (11.1-14.7) Seconds INR APTT (22.3-36.8) Seconds D-Dimer (<0.48) ug/mL Sodium Potassium Chloride Carbon Dioxide Anion Gap BUN Creatinine Estim Creat Clear Calc Estimated GFR Glucose Calcium 9.3 Magnesium 1.9 (1.6-2.3) mg/dL Total Bilirubin Cancelled 1.9 H AST Cancelled 30 ALT Cancelled Alkaline Phosphatase Troponin I (0.000-0.034) ng/mL NT-Pro-B Natriuret Pep Total Protein Albumin Urine Color (Yellow) Urine Appearance (Clear) Urine pH (5.0-9.0) Ur Specific [place] (1.001-1.035) Urine Protein (Negative) mg/dL Urine Glucose (UA) (Negative) mg/dL Urine Ketones (Negative) mg/dL Ur Blood (Man) (Negative) Urine Nitrate (Negative) Urine Bilirubin (Negative) Urine Urobilinogen (<2.0) mg/dL Leukocyte Esterase Rfl (Negative) BLUE/UL Urine RBC (0-2) /hpf Urine WBC (0-3) /hpf Ur Squamous Epith Cells (Few) /hpf Urine Bacteria /hpf Urine Casts Influenza A (RT-PCR) (Negative) Influenza B (RT-PCR) (Negative) RSV (RT-PCR) (Negative) SARS-CoV-2 RNA (RT-PCR) (Negative) 11/17/24 11/17/24 11/17/24 Range/Units 13:16 13:16 13:16 WBC (4.5-10.0) K/mm3 RBC (4.6-6.20) M/mm3 Hgb (14.0-18.0) g/dL Hct (42.0-52.0) % MCV (80-100) fl MCH (26-34) pg MCHC (32-36) g/dl RDW (11.5-14.5) % Plt Count (150-375) k/mm3 MPV (7.4-10.4) fl Immature Gran % (Auto) (0-0.5) % Neut % (Auto) (45.5-73.1) % Lymph % (Auto) (18.3-44.2) % [place] % (Auto) (2.6-8.5) % Eos % (Auto) (0-4.4) % Baso % (Auto) (0.2-1.2) % Lymph # (Auto) (0.9-3.2) K/mm3 [place] # (Auto) (0.1-0.6) K/mm3 Eos # (Auto) (0-0.3) K/mm3 Baso # (Auto) (0.0-0.1) K/mm3 Abs Immat Gran (auto) (0.00-0.031) K/mm3 Absolute Neuts (auto) (1.3-6.7) K/mm3 Absolute Nucleated RBC (0.0-0.012) K/mm3 Nucleated RBC % (0.0-0.2) % PT (11.1-14.7) Seconds INR APTT (22.3-36.8) Seconds D-Dimer (<0.48) ug/mL Sodium Potassium Chloride Carbon Dioxide Anion Gap BUN Creatinine Estim Creat Clear Calc Estimated GFR Glucose Calcium Magnesium (1.6-2.3) mg/dL Total Bilirubin AST ALT 23 Alkaline Phosphatase Cancelled 69 Troponin I 0.142 H* (0.000-0.034) ng/mL NT-Pro-B Natriuret Pep Cancelled 4390 H Total Protein Cancelled Albumin Urine Color (Yellow) Urine Appearance (Clear) Urine pH (5.0-9.0) Ur Specific [place] (1.001-1.035) Urine Protein (Negative) mg/dL Urine Glucose (UA) (Negative) mg/dL Urine Ketones (Negative) mg/dL Ur Blood (Man) (Negative) Urine Nitrate (Negative) Urine Bilirubin (Negative) Urine Urobilinogen (<2.0) mg/dL Leukocyte Esterase Rfl (Negative) BLUE/UL Urine RBC (0-2) /hpf Urine WBC (0-3) /hpf Ur Squamous Epith Cells (Few) /hpf Urine Bacteria /hpf Urine Casts Influenza A (RT-PCR) (Negative) Influenza B (RT-PCR) (Negative) RSV (RT-PCR) (Negative) SARS-CoV-2 RNA (RT-PCR) (Negative) 11/17/24 11/17/24 11/17/24 Range/Units 13:16 13:16 15:07 WBC (4.5-10.0) K/mm3 RBC (4.6-6.20) M/mm3 Hgb (14.0-18.0) g/dL Hct (42.0-52.0) % MCV (80-100) fl MCH (26-34) pg MCHC (32-36) g/dl RDW (11.5-14.5) % Plt Count (150-375) k/mm3 MPV (7.4-10.4) fl Immature Gran % (Auto) (0-0.5) % Neut % (Auto) (45.5-73.1) % Lymph % (Auto) (18.3-44.2) % [place] % (Auto) (2.6-8.5) % Eos % (Auto) (0-4.4) % Baso % (Auto) (0.2-1.2) % Lymph # (Auto) (0.9-3.2) K/mm3 [place] # (Auto) (0.1-0.6) K/mm3 Eos # (Auto) (0-0.3) K/mm3 Baso # (Auto) (0.0-0.1) K/mm3 Abs Immat Gran (auto) (0.00-0.031) K/mm3 Absolute Neuts (auto) (1.3-6.7) K/mm3 Absolute Nucleated RBC (0.0-0.012) K/mm3 Nucleated RBC % (0.0-0.2) % PT (11.1-14.7) Seconds INR APTT (22.3-36.8) Seconds D-Dimer (<0.48) ug/mL Sodium Potassium Chloride Carbon Dioxide Anion Gap BUN Creatinine Estim Creat Clear Calc Estimated GFR Glucose Calcium Magnesium (1.6-2.3) mg/dL Total Bilirubin AST ALT Alkaline Phosphatase Troponin I (0.000-0.034) ng/mL NT-Pro-B Natriuret Pep Total Protein 8.0 Albumin Cancelled 4.3 Urine Color Yellow (Yellow) Urine Appearance Clear (Clear) Urine pH 6.5 (5.0-9.0) Ur Specific [place] 1.016 (1.001-1.035) Urine Protein Trace (Negative) mg/dL Urine Glucose (UA) Negative (Negative) mg/dL Urine Ketones Trace H (Negative) mg/dL Ur Blood (Man) Negative (Negative) Urine Nitrate Negative (Negative) Urine Bilirubin Negative (Negative) Urine Urobilinogen 0.2 (<2.0) mg/dL Leukocyte Esterase Rfl Negative (Negative) BLUE/UL Urine RBC 0-2 (0-2) /hpf Urine WBC 0-5 (0-3) /hpf Ur Squamous Epith Cells None seen (Few) /hpf Urine Bacteria None seen /hpf Urine Casts 0-2 Influenza A (RT-PCR) (Negative) Influenza B (RT-PCR) (Negative) RSV (RT-PCR) (Negative) SARS-CoV-2 RNA (RT-PCR) (Negative) 11/17/24 Range/Units 16:56 WBC (4.5-10.0) K/mm3 RBC (4.6-6.20) M/mm3 Hgb (14.0-18.0) g/dL Hct (42.0-52.0) % MCV (80-100) fl MCH (26-34) pg MCHC (32-36) g/dl RDW (11.5-14.5) % Plt Count (150-375) k/mm3 MPV (7.4-10.4) fl Immature Gran % (Auto) (0-0.5) % Neut % (Auto) (45.5-73.1) % Lymph % (Auto) (18.3-44.2) % [place] % (Auto) (2.6-8.5) % Eos % (Auto) (0-4.4) % Baso % (Auto) (0.2-1.2) % Lymph # (Auto) (0.9-3.2) K/mm3 [place] # (Auto) (0.1-0.6) K/mm3 Eos # (Auto) (0-0.3) K/mm3 Baso # (Auto) (0.0-0.1) K/mm3 Abs Immat Gran (auto) (0.00-0.031) K/mm3 Absolute Neuts (auto) (1.3-6.7) K/mm3 Absolute Nucleated RBC (0.0-0.012) K/mm3 Nucleated RBC % (0.0-0.2) % PT (11.1-14.7) Seconds INR APTT (22.3-36.8) Seconds D-Dimer (<0.48) ug/mL Sodium Potassium Chloride Carbon Dioxide Anion Gap BUN Creatinine Estim Creat Clear Calc Estimated GFR Glucose Calcium Magnesium (1.6-2.3) mg/dL Total Bilirubin AST ALT Alkaline Phosphatase Troponin I 0.128 H* (0.000-0.034) ng/mL NT-Pro-B Natriuret Pep Total Protein Albumin Urine Color (Yellow) Urine Appearance (Clear) Urine pH (5.0-9.0) Ur Specific [place] (1.001-1.035) Urine Protein (Negative) mg/dL Urine Glucose (UA) (Negative) mg/dL Urine Ketones (Negative) mg/dL Ur Blood (Man) (Negative) Urine Nitrate (Negative) Urine Bilirubin (Negative) Urine Urobilinogen (<2.0) mg/dL Leukocyte Esterase Rfl (Negative) BLUE/UL Urine RBC (0-2) /hpf Urine WBC (0-3) /hpf Ur Squamous Epith Cells (Few) /hpf Urine Bacteria /hpf Urine Casts Influenza A (RT-PCR) (Negative) Influenza B (RT-PCR) (Negative) RSV (RT-PCR) (Negative) SARS-CoV-2 RNA (RT-PCR) (Negative) <Tana Chu MD - Last Filed: 11/19/24 06:27> Imaging Data Radiologist's impression: Impression: Right upper lobe pneumonia. IMPRESSION: No CT evidence of acute pulmonary embolus. Right upper and middle lobe opacities likely representing infection and/or aspiration. Mediastinal lymphadenopathy. Small bilateral pleural effusions. <Tana Chu MD - Last Filed: 11/19/24 06:27> ECG Data EKG #1: Attestation: I personally reviewed and interpreted this ECG as follows: <Tana Chu MD - Last Filed: 11/19/24 06:27> ECG completion date: 11/17/24 <Tana Chu MD - Last Filed: 11/19/24 06:27> ECG completion time: 12:39 <Tana Chu MD - Last Filed: 11/19/24 06:27> Interpretation: Sinus tachycardia at a rate of 105 beats per minute. OK interval 168. QRS 105. QT/QTC 341/402. Poor R-wave progression across the precordial leads. No T-wave inversions. <Tana Chu MD - Last Filed: 11/19/24 06:27> Discharge Plan Discharge Clinical Impression: Right upper lobe pneumonia, Non-ST elevation [place] (NSTEMI), Leukocytosis, Thrombocytosis, Hyperbilirubinemia, Elevated brain natriuretic peptide (BNP) level, Mediastinal lymphadenopathy, Bilateral pleural effusion <Katy Barajas PA-C - Last Filed: 11/17/24 12:23> Patient Disposition: Still a Patient <ANN MARIE Jasmine Last Filed: 11/17/24 12:23> Condition: Stable <Katy Barajas PA-C - Last Filed: 11/17/24 12:23>
--- NOTE | 2024-11-17 12:17 | ECG_ITS ---
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
[2024-11-17 13:27] LABS: Basophils Absolute Auto 0.1 K/mm3 (0.0-0.1); Basophils Percent Auto 0.5 % (0.2-1.2); Eosinophils Percent Auto 0.1 % (0-4.4); Hematocrit 50.1 % (42.0-52.0); Hemoglobin 16.6 g/dL (14.0-18.0); Immature Granulocyte Absolute 0.06 K/mm3 (0.00-0.031); Immature Granulocyte Percent A 0.4 % (0-0.5); Lymphocytes Absolute Auto 0.97 K/mm3 (0.9-3.2); Lymphocytes Percent Auto 6.2 % (18.3-44.2); Mean Corpuscular HGB Conc 33.1 g/dl (32-36); Mean Corpuscular Hemoglobin 28.2 pg (26-34); Mean Corpuscular Volume 85.1 fl (80-100); Mean Platelet Volume 10.3 fl (7.4-10.4); Monocytes Percent Auto 6.1 % (2.6-8.5); Neutrophils Absolute Auto 13.7 K/mm3 (1.3-6.7); Neutrophils Percent Auto 86.7 % (45.5-73.1); Platelet Count Result 381 k/mm3 (150-375); Red Blood Count 5.89 M/mm3 (4.6-6.20); Red Cell Distribution Width 14.1 % (11.5-14.5); White Blood Count 15.8 K/mm3 (4.5-10.0)
[2024-11-17 13:36] LABS: Alanine Aminotransferase 23 U/L (6-50); Albumin Level 4.3 g/dL (3.5-5.1); Alkaline Phosphatase 69 U/L (38-126); Anion Gap 5 mmol/L (4-12); Aspartate Amino Transferase 30 U/L (17-59); Bilirubin,Total 1.9 mg/dL (0.2-1.3); Blood Urea Nitrogen 20 mg/dL (9-20); Calcium 9.3 mg/dL (8.4-10.2); Carbon Dioxide 25 mmol/L (22-30); Chloride 106 mmol/L (98-107); Estimated CRCL calculation 89 ml/min; Estimated Glomerular Filt Rate > 60; Glucose 103 mg/dL (65-110); Magnesium 1.9 mg/dL (1.6-2.3); Potassium 4.3 mmol/L (3.4-5.0); Sodium 136 mmol/L (137-145)
[2024-11-17 13:38] LABS: INR 0.9
[2024-11-17 13:39] LABS: Partial Thromboplastin Time 25.6 Seconds (22.3-36.8)
[2024-11-17 13:40] LABS: Influenza A QL RT-PCR Negative (Negative); Influenza B QL RT-PCR Negative (Negative); RSV RNA, RT-PCR Negative (Negative); SARS-CoV-2 RNA PCR Negative (Negative)
[2024-11-17 13:41] LABS: D Dimer 0.92 ug/mL (<0.48)
[2024-11-17 13:52] LABS: NT Pro B Type Natriuretic Pept 4390 pg/mL (19.9-100); Troponin I 0.142 ng/mL (0.000-0.034)
[2024-11-17] MEDS: ASPIRIN 81 MG CHEWABLE TABLET 324 MG PO (15:26)
[2024-11-17 15:29] LABS: Add Urine Microscopic? YES; Appearance Urine Clear (Clear); Bacteria Urine None Seen /hpf; Bilirubin Urine Negative (Negative); Blood Urine Negative (Negative); Color Urine Yellow (Yellow); Glucose Urine UA Negative (Negative); Ketones Urine Trace mg/dL (Negative); Leukocyte Esterase Ur Negative LEU/UL (Negative); Nitrate Urine Negative (Negative); Non Pathogenic Casts 0-2; Protein Urine Trace mg/dL (Negative); RBC Urine 0-2 /hpf (0-2); Specific Grav Ur 1.016 (1.001-1.035); Squamous Epithelial Cell Urine None Seen /hpf (Few); Urobilinogen Urine 0.2 mg/dL (<2.0); WBC Urine 0-5 /hpf (0-3); pH Urine 6.5 (5.0-9.0)
--- NOTE | 2024-11-17 16:17 | PC.NURSE ---
having trouble obtaining blood cultures at this time. will start antibiotic after blood culture are obtained
--- NOTE | 2024-11-17 16:33 | P.HP_ITS ---
H&P: HPI History of Present Illness Date/Time: 11/17/24 16:33 Chief Complaint: Pneumonia Narrative: 59-year-old male with dyspnea with activities and a productive cough for 2 days. Patient states that he came to the emergency room because he thought he had pneumonia once be evaluated. Patient denies chest pain. In the ED has leukocytosis at 15.8, elevated D-dimer at 0.92, troponin of 0.142, BNP 4390, influenza a B, COVID and RSV negative. CTA shows no evidence of pulmonary embolism. Right upper and middle lobe opacities likely representing infection and/or aspiration. Mediastinal lymphadenopathy. Small bilateral pleural effusions. He was given aspirin, Rocephin, doxycycline and Lasix in the ED. While in the ED his troponins continue to rise and he was started on heparin drip for NSTEMI. Review of Systems Review of Systems: 12 systems were reviewed and are negativ e except for as per HPI. [facility] Surgical History Surgical History H/O lumbar discectomy Social History Social History Smoking status: Never smoker Alcohol intake: current Drinks per week: 1 Substance use: never Substance use type: does not use Do You Feel Safe in your Home?: Yes Lack of Transportation: No Lack of Food: Never True Current Housing: I Have Housing Concerned About Future Housing: No Difficulty Paying Gas/Electric Bills: No Difficulty Paying for Meds: No Currently Unemployed: No Education: High School Diploma/GED Difficulty w/ Childcare or Family Care: No Spiritual care concerns: No Meds Home Medications and Allergies Home Medications ?Medication ?Instructions ?Recorded ?Confirmed ?Type No Home Medications 11/17/24 11/17/24 History Allergies Allergy/AdvReac Type Severity Reaction Status Date / Time poison mateo extract Allergy Intermediate HIVES Verified 08/19/24 15:08 poison oak extract Allergy Unknown Unknown Verified 08/19/24 15:08 Vital Signs Vital Signs - 24 hr 11/17/24 10:49 11/17/24 16:27 Temperature 97.6 F Pulse Rate 113 H 100 Respiratory Rate 16 24 H Blood Pressure 163/100 H 177/98 H Pulse Oximetry 94 95 Exam Narrative: General: well appearing, appears stated age. HEENT: normocephalic, atraumatic. Mucous membranes moist. EOMI, PERRLA, bilateral sclera anicteric, no conjunctival injection. Neck supple without JVD, lymphadenopathy, or bruit. Respiratory: clear to ascultation bilaterally. No rales/rhonic/wheezes. Cardiovascular: Regular rate and rhythm, normal S1-S2 upon ascultation. No murmurs, rubs, or clicks. PMI is nondisplaced, capillary refill less than 3 second. Abdomen: Soft, round, no pulsatile masses, nondistended and nontender. No rebound, no guarding. No CVA tenderness, no hepatosplenomegaly. Bowel sounds present to all four quadrants. No high pitch or tinkling sounds, resonant to percussion. Extremities: No cyanosis, clubbing, or edema present. Pulses are palpable 2/2. Active ROM to all four extremities. Neuro: Alert and orientated x 4. PERRLA. Cranial nerves 2-12 intact without focal deficit. Skin: Warm, dry, and intact, without rash, erythema, or lesion. Psych: pleasant, cooperative, normal speech, normal affect, no hallucinations, no dysarthia H&P: Results Labs Labs: Short CBC 11/17/24 Range/Units 13:16 WBC 15.8 H (4.5-10.0) K/mm3 Hgb 16.6 (14.0-18.0) g/dL Hct 50.1 (42.0-52.0) % Plt Count 381 H (150-375) k/mm3 BMP 11/17/24 11/17/24 11/17/24 13:16 13:16 13:16 Sodium Cancelled 136 L Potassium Cancelled 4.3 Chloride Cancelled Carbon Dioxide BUN Creatinine Glucose Calcium 11/17/24 11/17/24 11/17/24 13:16 13:16 13:16 Sodium Potassium Chloride 106 Carbon Dioxide Cancelled 25 BUN Cancelled 20 Creatinine Cancelled Glucose Calcium 11/17/24 11/17/24 11/17/24 13:16 13:16 13:16 Sodium Potassium Chloride Carbon Dioxide BUN Creatinine 0.90 Glucose Cancelled 103 Calcium Cancelled 9.3 Cardiac Enzymes 11/17/24 Range/Units 13:16 Troponin I 0.142 H* (0.000-0.034) ng/mL Liver Function 11/17/24 11/17/24 11/17/24 Range/Units 13:16 13:16 13:16 Total Bilirubin Cancelled 1.9 H AST Cancelled 30 ALT Cancelled Alkaline Phosphatase Albumin 11/17/24 11/17/24 11/17/24 Range/Units 13:16 13:16 13:16 Total Bilirubin AST ALT 23 Alkaline Phosphatase Cancelled 69 Albumin Cancelled 4.3 Urine 11/17/24 Range/Units 15:07 Urine Color Yellow (Yellow) Urine Appearance Clear (Clear) Urine pH 6.5 (5.0-9.0) Ur Specific [place] 1.016 (1.001-1.035) Urine Protein Trace (Negative) mg/dL Urine Glucose (UA) Negative (Negative) mg/dL Assessment and Plan Assessment and plan (1) Right upper lobe pneumonia: Code(s): J18.9 - Pneumonia, unspecified organism Status: Acute Assessment and Plan: DuoNeb IV Rocephin and doxy Robitussin (2) Non-ST elevation NM (NSTEMI): Code(s): I21.4 - Non-ST elevation (NSTEMI) myocardial infarction Status: Acute Assessment and Plan: Denies chest pain Heparin drip per protocol Cardiology consulted NPO midnight for possible procedure (3) Leukocytosis: Code(s): D72.829 - Elevated white blood cell count, unspecified Status: Acute Assessment and Plan: Secondary to pneumonia Rocephin and doxycycline (4) Elevated brain natriuretic peptide (BNP) level: Code(s): R79.89 - Other specified abnormal findings of blood chemistry Status: Acute Assessment and Plan: Patient given Lasix in the ED Cardiology consulted pending recommendations Echocardiogram pending Quality VTE Prophylaxis VTE prophylaxis: mechanical ordered and pharmacologic ordered Hospitalist MIPS Advance Care Plan I have confirmed that the patient's Advanced Care Plan is present, code status is documented, or surrogate decision maker is listed in patient medical record.: Yes Medication Reconciliation I have utilized all available resources to obtain, update and review the patients current medications (includes all prescriptions, OTC, herbals, cannabis, and nutritional supplements).: Yes
--- NOTE | 2024-11-17 16:49 | ECG_ITS ---
Test Date: 2024-11-17 17:02:23 Measurements Intervals [place] Rate: 100 P: 39 [place]: 193 QRS: -29 QRSD: 110 T: 80 QT: 350 QTc: 452 Interpretive Statements SINUS TACHYCARDIA POSSIBLE LEFT ATRIAL ENLARGEMENT [-0.1mV P WAVE IN V1/V2] BORDERLINE LEFT AXIS DEVIATION [QRS AXIS < -20] Poor R wave progression NONSPECIFIC T-WAVE ABNORMALITY ABNORMAL RHYTHM ECG Compared to ECG 11/17/2024 12:39:42 T-wave abnormality still present Electronically Signed On 11-17-2024 22:39:18 FRAME WIRER by Edgard Perez M.D.
[2024-11-17] MEDS: DOXYCYCLINE 100 MG/NS 100 ML 100 MG/100 ML BAG IVPB (17:30)
[2024-11-17 17:51] LABS: Troponin I 0.128 ng/mL (0.000-0.034)
[2024-11-17] MEDS: HEPARIN SODIUM 5,000 UNITS/ML VIAL 4000 UNITS IV PUSH (19:52)
[2024-11-17] MEDS: HEPARIN SOD/D5W 100 UNITS/ML 25,000 UNITS/250 ML BAG 10 UNITS IV CONT (19:53)
--- NOTE | 2024-11-17 22:25 | ADMGEN ---
This patient, Gabe King, was admitted to IMU Room 203-01. Patient/family oriented to hospital policies and general routines including ID bracelet, bed and alarms, visiting hours, pain management, procedures, bathroom and other care routines, personal items, smoking policy, room service/diet, and visiting hours. Information on how to activate the Rapid Response Team has been discussed. Patient/Family are encouraged to report perceived risks to care and to ask questions if they do not understand what they are told or what they should do.
[2024-11-18] VITALS (15 sets, daily range): BP systolic 130–175; BP diastolic 68–104; PULSE 71–98; RESP 18–20; TEMP 36.7–37.1; O2SAT 96–99
--- NOTE | 2024-11-18 | ECHO_ITS ---
Patient Info Name: Gabe King Age: 59 years : 1965 Gender: Male Ht: 66 in Wt: 245 lbs BSA: 2.33 m2 HR: 86 bpm BP: 167 / 103 mmHg Technical Quality: Good Exam Date: 11/18/2024 11:22 AM Exam Location: Echo Lab Exam Room: [facility]– [place] Patient Status: Inpatient Admit Date: 11/17/2024 Staff Ordering Physician: Kelsey Rodrigues APRN Freight Manager: Zoya Horne RDCS Attending Provider: Tha Crow MD Referring Physician: Lilia KENNY; Exam Type: CA echo limited Study Info Complete two-dimensional, color flow and Doppler transthoracic echocardiogram is performed. Summary 1. Complete two-dimensional, color flow and Doppler transthoracic echocardiogram is performed. 2. Left ventricular chamber dimension is enlarged. 3. Left ventricular systolic function is moderately reduced, estimated at 35-40%. 4. There is no increased left ventricular wall thickness. 5. Left ventricular wall motion shows hypokinesis of basal-mid ant-septal, inf-septal segments. 6. The left ventricular diastolic function is normal. 7. Right ventricular chamber dimension is enlarged. 8. There is mild tricuspid valve regurgitation. 9. No pulmonary hypertension, estimated pulmonary arterial systolic pressure is 37 mmHg. 10. Normal inferior vena cava with >50% collapse upon inspiration consistent with normal right atrial pressure, 3 mmHg. Left Ventricle Left ventricular chamber dimension is enlarged. Left ventricular systolic function is moderately reduced, estimated at 35-40%. There is no increased left ventricular wall thickness. Left ventricular wall motion shows hypokinesis of basal-mid ant-septal, inf-septal segments. The left ventricular diastolic function is normal. Right Ventricle Right ventricular chamber dimension is enlarged. Right ventricular systolic function is normal. Left Atria Left atrial chamber dimension is normal. Right Atria Right atrial chamber dimension is enlarged. Aortic Valve The aortic valve is trileaflet. There is mild aortic valve sclerosis. There is no aortic valve stenosis. There is no aortic valve regurgitation. Pulmonic Valve The pulmonic valve is normal. There is no pulmonic valve stenosis. There is no pulmonic regurgitation. Mitral Valve The mitral valve has normal leaflets. There is no mitral valve stenosis. There is trace mitral valve regurgitation. Tricuspid Valve The tricuspid valve leaflets are normal. There is no significant tricuspid valve stenosis. There is mild tricuspid valve regurgitation. No pulmonary hypertension, estimated pulmonary arterial systolic pressure is 37 mmHg. Pericardium/Pleural The pericardium appears normal. There is no pericardial effusion. Inferior Vena Cava Normal inferior vena cava with >50% collapse upon inspiration consistent with normal right atrial pressure, 3 mmHg. Aorta The aortic root size at the sinus of Valsalva is normal. The prox ascending aorta size is normal. Left Ventricular Outflow Tract Name Value Normal LVOT 2D LVOT Diameter 2.5 cm LVOT Doppler LVOT Peak Gradient 4 mmHg LVOT Mean Gradient 2 mmHg LVOT VTI 16 cm LVOT VTI/AV VTI Ratio 0.6 LVOT Stroke Volume 80 ml LVOT CO 7.2 l/min LVOT CI 3.1 l/min/m2 Pulmonic Valve Name Value Normal PV Doppler PV Peak Gradient 6 mmHg Mitral Valve Name Value Normal MV Doppler MV Peak Gradient 6 mmHg MV Mean Gradient 1 mmHg MV Decel Cobb 860 cm/s2 MV PHT 36 ms MV Area (PHT) 6.0 cm2 4.0-5.0 MV Area (Cont Eq VTI) 2.6 cm2 MV Diastolic Function MV E Peak Velocity 108 cm/s MV A Peak Velocity 92 cm/s MV E/A 1.2 MV Decel Time 125 ms MV Annular TDI MV E/e' (Septal) 18.1 <=8.0 MV E/e' (Lateral) 13.9 <=8.0 MV E/e' (Average) 16.0 Tricuspid Valve Name Value Normal TV Regurgitation Doppler TR Peak Velocity 294 cm/s TR Peak Gradient 34 mmHg Estimated PAP/RSVP RA Pressure 3 mmHg <=5 PA Systolic Pressure 37 mmHg <36 RV Systolic Pressure 37 mmHg <36 Aortic Valve Name Value Normal AV Doppler AV Peak Velocity 157 cm/s AV Peak Gradient 10 mmHg AV Mean Gradient 6 mmHg AV VTI 28 cm AV Area (Cont Eq VTI) 2.9 cm2 >=3.0 AV Area (Cont Eq Luis) 3.1 cm2 AV Regurgitation 2D LVOT Area 5.1 cm2 Ventricles Name Value Normal LV Dimensions 2D/MM IVS Diastolic Thickness (2D) 1.2 cm 0.6-1.0 LVID Diastole (2D) 6.8 cm 4.2-5.8 LVIW Diastolic Thickness (2D) 1.1 cm 0.6-1.0 LVID Systole (2D) 5.7 cm 2.5-4.0 LVOT Diameter 2.5 cm LV Mass (2D Cubed) 353.76 g 88.00-224.00 LV Mass Index (2D Cubed) 152 g/m2 49-115 Relative Wall Thickness (2D) 0.31 LV Fractional Shortening/Ejection Fraction 2D/MM LV Fractional Shortening (2D) 16 % 25-43 LV EF (2D Teicholz) 34 % 52-72 LV Diastolic Volume (4C MOD) 307 ml LV EF (4C MOD) 32 % LV Diastolic Length (4C) 9.8 cm LV Systolic Length (4C) 9.3 cm LV Stroke Volume (4C MOD) 99 ml Atria Name Value Normal LA Dimensions LA Volume (4C A-L) 110 ml RA Dimensions RA Area (4C) 23.0 cm2 <=18.0 Report Signatures
[2024-11-18 02:11] LABS: Basophils Absolute Auto 0.1 K/mm3 (0.0-0.1); Basophils Percent Auto 0.5 % (0.2-1.2); Eosinophils Absolute Auto 0.1 K/mm3 (0-0.3); Eosinophils Percent Auto 1.3 % (0-4.4); Hematocrit 43.7 % (42.0-52.0); Hemoglobin 14.4 g/dL (14.0-18.0); Immature Granulocyte Absolute 0.03 K/mm3 (0.00-0.031); Immature Granulocyte Percent A 0.3 % (0-0.5); Lymphocytes Absolute Auto 2.22 K/mm3 (0.9-3.2); Lymphocytes Percent Auto 20.1 % (18.3-44.2); Mean Corpuscular Hemoglobin 28.3 pg (26-34); Mean Corpuscular Volume 85.9 fl (80-100); Monocytes Absolute Auto 1.2 K/mm3 (0.1-0.6); Monocytes Percent Auto 10.8 % (2.6-8.5); Neutrophils Absolute Auto 7.4 K/mm3 (1.3-6.7); Platelet Count Result 311 k/mm3 (150-375); Red Blood Count 5.09 M/mm3 (4.6-6.20); Red Cell Distribution Width 14.3 % (11.5-14.5); White Blood Count 11.1 K/mm3 (4.5-10.0)
[2024-11-18 02:23] LABS: Partial Thromboplastin Time 36.2 Seconds (22.3-36.8)
[2024-11-18] MEDS: HEPARIN SODIUM 5,000 UNITS/ML VIAL 4000 UNITS IV PUSH (03:16)
[2024-11-18] MEDS: guaiFENesin/DEXTROMETHORPHAN 10 ML UDC PO ×2 (03:21→13:40)
[2024-11-18 04:11] LABS: Troponin I 0.122 ng/mL (0.000-0.034)
--- NOTE | 2024-11-18 09:03 | PM.CNCAR ---
Assessment and Plan Assessment and plan (1) Type 2 FL (myocardial infarction): Code(s): I21.A1 - Myocardial infarction type 2 Status: Acute Plan 1. Type 2 FL 2. Suspected PNA 3. Acute onset Heart Failure -I suspect his symptoms of cough and shortness of breath due to heart failure. We will get an echo to assess his LV function and wall motion. The troponin elevation is secondary to type 2 FL and most likely has underlying obstructive CAD. -continue diuresis -will continue to optimize his antihypertensive medications; start him on carvedilol 12.5 mg twice daily, losartan 50 mg once daily - Heparin can be discontinued - MPI as an outpatient History of Present Illness History of Present Illness Consult date/time: 11/18/24 09:03 Reason For Visit: Pneumonia/NSTEMI Narrative: 59-year-old male who was admitted with suspected PNA. Cardiology consulted for elevated troponin. He denies any chest pain EKG shows sinus tachycardia, left axis deviation, left atrial enlargement, poor R-wave progression Troponin has been flat; 0.142, 0.128, 0.122 No known prior CAD, FL or CVA BNP 4390 Review of Systems Review of Systems: 12 systems were reviewed and are negative except for as per HPI. [facility] Surgical History Surgical History H/O lumbar discectomy Social History Social History Smoking status: Never smoker Alcohol intake: current Drinks per week: 1 Substance use: never Substance use type: does not use Do You Feel Safe in your Home?: Yes Lack of Transportation: No Lack of Food: Never True Current Housing: I Have Housing Concerned About Future Housing: No Difficulty Paying Gas/Electric Bills: No Difficulty Paying for Meds: No Currently Unemployed: No Education: High School Diploma/GED Difficulty w/ Childcare or Family Care: No Spiritual care concerns: No Meds Home Medications and Allergies Home Medications ?Medication ?Instructions ?Recorded ?Confirmed ?Type No Home Medications 11/17/24 11/17/24 History Allergies Allergy/AdvReac Type Severity Reaction Status Date / Time poison mateo extract Allergy Intermediate HIVES Verified 08/19/24 15:08 poison oak extract Allergy Unknown Unknown Verified 08/19/24 15:08 Vital Signs Vital Signs - 24 hr 11/17/24 10:49 11/17/24 14:15 11/17/24 14:16 Temperature 36.4 C Pulse Rate 113 H 101 H 100 Respiratory Rate 16 18 26 H Blood Pressure 163/100 H 180/104 H 180/105 H Pulse Oximetry 94 95 96 Oxygen Delivery 11/17/24 14:31 11/17/24 14:46 11/17/24 15:24 Temperature Pulse Rate 99 99 103 H Respiratory Rate 27 H 29 H 30 H Blood Pressure 177/103 H 180/107 H 182/98 H Pulse Oximetry 97 99 95 Oxygen Delivery 11/17/24 15:31 11/17/24 16:26 11/17/24 16:27 Temperature Pulse Rate 103 H 101 H 100 Respiratory Rate 28 H 24 H 24 H Blood Pressure 178/105 H 177/98 H 177/98 H Pulse Oximetry 96 95 95 Oxygen Delivery 11/17/24 16:30 11/17/24 16:31 11/17/24 16:46 Temperature Pulse Rate 100 100 100 Respiratory Rate 19 15 29 H Blood Pressure 163/100 H 175/100 H Pulse Oximetry 97 94 97 Oxygen Delivery 11/17/24 17:01 11/17/24 17:03 11/17/24 17:16 Temperature Pulse Rate 103 H 98 98 Respiratory Rate 27 H 22 H 24 H Blood Pressure 191/105 H 174/111 H 173/105 H Pulse Oximetry 96 96 96 Oxygen Delivery 11/17/24 17:31 11/17/24 17:46 11/17/24 18:01 Temperature Pulse Rate 97 102 H 95 Respiratory Rate 24 H 23 H 15 Blood Pressure 182/110 H 192/98 H 185/116 H Pulse Oximetry 99 95 Oxygen Delivery 11/17/24 18:15 11/17/24 18:30 11/17/24 18:45 Temperature Pulse Rate 106 H 101 H 101 H Respiratory Rate 27 H 21 H 18 Blood Pressure Pulse Oximetry 94 95 91 Oxygen Delivery 11/17/24 19:00 11/17/24 19:15 11/17/24 21:23 Temperature Pulse Rate 98 92 91 Respiratory Rate 19 27 H 21 H Blood Pressure 169/91 H Pulse Oximetry 94 96 97 Oxygen Delivery 11/17/24 21:31 11/17/24 21:46 11/17/24 22:44 Temperature 37.0 C Pulse Rate 91 91 94 Respiratory Rate 19 17 18 Blood Pressure 161/96 H 156/98 H 168/102 H Pulse Oximetry 96 96 97 Oxygen Delivery 11/17/24 22:45 11/17/24 23:55 11/17/24 23:59 Temperature 37.0 C Pulse Rate 94 97 98 Respiratory Rate 18 20 20 Blood Pressure 182/100 H Pulse Oximetry 97 97 97 Oxygen Delivery Room Air Room Air 11/17/24 23:59 11/18/24 02:00 11/18/24 04:00 Temperature Pulse Rate 98 94 91 Respiratory Rate 20 Blood Pressure Pulse Oximetry 97 Oxygen Delivery Room Air 11/18/24 04:00 11/18/24 05:51 11/18/24 06:37 Temperature 37.0 C Pulse Rate 91 92 86 Respiratory Rate 18 Blood Pressure 167/103 H Pulse Oximetry 97 Oxygen Delivery Exam Narrative: General: well appearing, appears stated age. HEENT: normocephalic, atraumatic. Mucous membranes moist. EOMI, PERRLA, bilateral sclera anicteric, no conjunctival injection. Neck supple without JVD, lymphadenopathy, or bruit. Respiratory: clear to ascultation bilaterally. No rales/rhonic/wheezes. Cardiovascular: Regular rate and rhythm, normal S1-S2 upon ascultation. No murmurs, rubs, or clicks. PMI is nondisplaced, capillary refill less than 3 second. Abdomen: Soft, round, no pulsatile masses, nondistended and nontender. No rebound, no guarding. No CVA tenderness, no hepatosplenomegaly. Bowel sounds present to all four quadrants. No high pitch or tinkling sounds, resonant to percussion. Extremities: No cyanosis, clubbing, or edema present. Pulses are palpable 2/2. Active ROM to all four extremities. Neuro: Alert and orientated x 4. PERRLA. Cranial nerves 2-12 intact without focal deficit. Skin: Warm, dry, and intact, without rash, erythema, or lesion. Psych: pleasant, cooperative, normal speech, normal affect, no hallucinations, no dysarthia Results Labs and Meds 11/18/24 02:01 11/17/24 13:16 Lab results: Cardiac Enzymes 11/17/24 11/17/24 11/17/24 Range/Units 13:16 13:16 16:56 AST Cancelled 30 Troponin I 0.142 H* 0.128 H* (0.000-0.034) ng/mL 11/18/24 Range/Units 02:01 AST Troponin I 0.122 H* (0.000-0.034) ng/mL Coagulation 11/17/24 11/18/24 Range/Units 13:16 02:01 PT 13.0 (11.1-14.7) Seconds APTT 25.6 36.2 (22.3-36.8) Seconds CBC 11/17/24 11/18/24 Range/Units 13:16 02:01 WBC 15.8 H 11.1 H (4.5-10.0) K/mm3 RBC 5.89 5.09 (4.6-6.20) M/mm3 Hgb 16.6 14.4 (14.0-18.0) g/dL Hct 50.1 43.7 (42.0-52.0) % Plt Count 381 H 311 (150-375) k/mm3 Lymph # (Auto) 0.97 2.22 (0.9-3.2) K/mm3 [place] # (Auto) 1.0 H 1.2 H (0.1-0.6) K/mm3 Eos # (Auto) 0.0 0.1 (0-0.3) K/mm3 Baso # (Auto) 0.1 0.1 (0.0-0.1) K/mm3 Comprehensive Metabolic Panel 11/17/24 11/17/24 11/17/24 Range/Units 13:16 13:16 13:16 Sodium Cancelled 136 L Potassium Cancelled 4.3 Chloride Cancelled Carbon Dioxide BUN Creatinine Glucose Calcium AST ALT Alkaline Phosphatase Total Protein Albumin 11/17/24 11/17/24 11/17/24 Range/Units 13:16 13:16 13:16 Sodium Potassium Chloride 106 Carbon Dioxide Cancelled 25 BUN Cancelled 20 Creatinine Cancelled Glucose Calcium AST ALT Alkaline Phosphatase Total Protein Albumin 11/17/24 11/17/24 11/17/24 Range/Units 13:16 13:16 13:16 Sodium Potassium Chloride Carbon Dioxide BUN Creatinine 0.90 Glucose Cancelled 103 Calcium Cancelled 9.3 AST Cancelled ALT Alkaline Phosphatase Total Protein Albumin 11/17/24 11/17/24 11/17/24 Range/Units 13:16 13:16 13:16 Sodium Potassium Chloride Carbon Dioxide BUN Creatinine Glucose Calcium AST 30 ALT Cancelled 23 Alkaline Phosphatase Cancelled 69 Total Protein Cancelled Albumin 11/17/24 11/17/24 Range/Units 13:16 13:16 Sodium Potassium Chloride Carbon Dioxide BUN Creatinine Glucose Calcium AST ALT Alkaline Phosphatase Total Protein 8.0 Albumin Cancelled 4.3 Intake and Output 11/17/24 11/18/24 11/18/24 23:59 07:59 15:59 Intake Total 150 571.2 Balance 150 571.2 Intake: IV 150 71.2 Heparin Sod/D5w 100 Units/ml 25 71.2 ,000 units In 250 ml @ 1,300 UNITS/HR 13 mls/hr IV CONT . [id number] [facility] Rx#:[id number] Doxycycline 100 mg/Ns 100 ml 100 100 mg In 100 ml @ 100 mls/hr IVPB ONCE ONE Rx#:[id number] cefTRIAXone 1 GM/NS 50 ML 1 gm 50 In 50 ml @ 100 mls/hr IVPB ONCE STA Rx#:[id number] Oral 500 Patient Weight 11/18/24 23:59 Weight 111.4 kg
[2024-11-18 09:18] LABS: Partial Thromboplastin Time 44.8 Seconds (22.3-36.8)
[2024-11-18] MEDS: ASPIRIN 81 MG CHEWABLE TABLET PO (10:37)
[2024-11-18] MEDS: ATORVASTATIN 40 MG TABLET 80 MG PO (10:38)
[2024-11-18] MEDS: carvediloL 12.5 MG TABLET PO ×2 (10:39→20:40)
[2024-11-18] MEDS: LOSARTAN POTASSIUM 50 MG TABLET PO (10:39)
--- NOTE | 2024-11-18 10:49 | PCSTNOTE ---
Please refer to the Bedside Swallow Evaluation in the EMR. Please note, silent aspiration cannot be ruled out at bedside.
--- NOTE | 2024-11-18 17:26 | PM.IMPN ---
Progress Note: A&P Assessment and Plan (1) Right upper lobe pneumonia: Code(s): J18.9 - Pneumonia, unspecified organism Status: Acute Assessment and Plan: Patient presents with dyspnea and cough. White count was 15.8K. No fevers. D-dimer positive. CTA of the chest showed no PE but did show right upper lobe and right middle lobe opacities representing infection and/or aspiration. He also had mediastinal lymphadenopathy and small bilateral pleural effusions. COVID, influenza and RSV PCR were negative. BNP was 4390. Troponins are elevated but relatively flat. He was started on Rocephin and doxycycline in the ED and continued after admission He remains on room air. He remains afebrile. White count trending downward. Continue antibiotics. Check MRSA nasal swab Speech therapy evaluation showed no concerns for aspiration. (2) Non-ST elevation RI (NSTEMI): Code(s): I21.4 - Non-ST elevation (NSTEMI) myocardial infarction Status: Acute Assessment and Plan: Patient presents with dyspnea on exertion. He has elevated BNP and troponins. EKG showed sinus tachycardia, left atrial enlargement and nonspecific T-wave changes with poor R-wave progression. Repeat EKG showed no change Patient denies chest pain. Concern for NSTEMI so heparin drip started. Cardiology consulted. He received full aspirin in the ED. Echocardiogram ordered. Patient has a history of NICMP but is on no medications at this time. Possible CHF. Lasix given once in the ED. follow-up on echo results. Continue Coreg, Cozaar and Lipitor that were started by Cardiology. (3) Leukocytosis: Code(s): D72.829 - Elevated white blood cell count, unspecified Status: Acute Assessment and Plan: Secondary to pneumonia. As above. White count trending downward Continue Rocephin and doxycycline (4) Elevated brain natriuretic peptide (BNP) level: Code(s): R79.89 - Other specified abnormal findings of blood chemistry Status: Acute Assessment and Plan: Patient given Lasix in the ED Cardiology consulted and appreciate their recommendations Echocardiogram pending As above Plan DVT prophylaxis -Lovenox Code status -full Subjective Date/time seen: 11/18/24 17:26 Interval history: 59yo male with history of NICMP here for [place] and cough. Assuming care. Chart reviewed. Patient with persistent cough. Slept poorly. Eating okay. No chest pain. Cough is productive of whitish sputum. No hemoptysis. No exposure to birds or cattle. Exam Narrative: AF 98.8 130/68 74 18 98% Gen - NARD Chest -a few right basilar crackles otherwise clear. CV - RRR S1/S2. Telemetry showing no significant dysrhythmias except 1 episode of 3 beat run NSVT Abd - Soft, NT/ND, Positive BS Ext - No pedal edema Psych - Nml mood and affect Skin - Warm and dry Objective Data Vital Signs Vital Signs: Vital Signs - 24 hr 11/17/24 17:31 11/17/24 17:46 11/17/24 18:01 Temperature Pulse Rate 97 102 H 95 Respiratory Rate 24 H 23 H 15 Blood Pressure 182/110 H 192/98 H 185/116 H Pulse Oximetry 99 95 Oxygen Delivery 11/17/24 18:15 11/17/24 18:30 11/17/24 18:45 Temperature Pulse Rate 106 H 101 H 101 H Respiratory Rate 27 H 21 H 18 Blood Pressure Pulse Oximetry 94 95 91 Oxygen Delivery 11/17/24 19:00 11/17/24 19:15 11/17/24 21:23 Temperature Pulse Rate 98 92 91 Respiratory Rate 19 27 H 21 H Blood Pressure 169/91 H Pulse Oximetry 94 96 97 Oxygen Delivery 11/17/24 21:31 11/17/24 21:46 11/17/24 22:44 Temperature 98.6 F Pulse Rate 91 91 94 Respiratory Rate 19 17 18 Blood Pressure 161/96 H 156/98 H 168/102 H Pulse Oximetry 96 96 97 Oxygen Delivery 11/17/24 22:45 11/17/24 23:55 11/17/24 23:59 Temperature 98.6 F Pulse Rate 94 97 98 Respiratory Rate 18 20 20 Blood Pressure 182/100 H Pulse Oximetry 97 97 97 Oxygen Delivery Room Air Room Air 11/17/24 23:59 11/18/24 02:00 11/18/24 04:00 Temperature Pulse Rate 98 94 91 Respiratory Rate 20 Blood Pressure Pulse Oximetry 97 Oxygen Delivery Room Air 11/18/24 04:00 11/18/24 05:51 11/18/24 06:37 Temperature 98.6 F Pulse Rate 91 92 86 Respiratory Rate 18 Blood Pressure 167/103 H Pulse Oximetry 97 Oxygen Delivery 11/18/24 08:00 11/18/24 08:00 11/18/24 10:00 Temperature 98.1 F Pulse Rate 90 86 87 Respiratory Rate 20 Blood Pressure 175/103 H Pulse Oximetry 99 Oxygen Delivery 11/18/24 10:39 11/18/24 12:00 11/18/24 12:00 Temperature Pulse Rate 95 90 93 Respiratory Rate 20 Blood Pressure 142/76 H Pulse Oximetry 96 Oxygen Delivery 11/18/24 14:00 11/18/24 15:57 11/18/24 16:00 Temperature 98.8 F Pulse Rate 76 71 Respiratory Rate 18 Blood Pressure 130/68 Pulse Oximetry 98 Oxygen Delivery Room Air 11/18/24 16:00 Temperature Pulse Rate 74 Respiratory Rate Blood Pressure Pulse Oximetry Oxygen Delivery Intake/Output Intake/Output: Intake & Output 11/15/24 11/16/24 11/17/24 11/18/24 23:59 23:59 23:59 23:59 Intake Total 150 811.2 Balance 150 811.2 Meds/Results Medications: Active Medications Generic Name Dose Route Start Last Admin Trade Name Freq PRN Reason Stop Dose Admin Acetaminophen 650 mg 11/17/24 16:23 Acetaminophen 325 Mg Tablet PO Q4H PRN Mild Pain (1-3) or Fever Aspirin 81 mg 11/18/24 08:20 11/18/24 10:37 Aspirin 81 Mg Chewable Tablet PO 81 mg DAILY@0800 SUPRIYA Administration Atorvastatin Calcium 80 mg 11/18/24 09:05 11/18/24 10:38 Atorvastatin 40 Mg Tablet PO 80 mg DAILY SUPRIYA Administration Carvedilol 12.5 mg 11/18/24 09:05 11/18/24 10:39 Carvedilol 12.5 Mg Tablet PO 12.5 mg Q12HR SUPRIYA Administration Docusate Sodium 100 mg 11/18/24 09:00 11/18/24 10:40 Docusate Sodium 100 Mg Capsule PO Not Given DAILY SUPRIYA Guaifenesin/Dextromethorphan 10 ml 11/18/24 02:59 11/18/24 13:40 Guaifenesin/Dextromethorphan 10 Ml Udc PO 10 ml Q4H PRN Administration Cough Ceftriaxone Sodium 1 gm in 50 mls @ 100 mls/hr 11/18/24 16:00 11/18/24 16:09 Rocephin 1 Gm/Ns 50 Ml IVPB 100 mls/hr Q24H SUPRIYA Administration Doxycycline Hyclate 100 mg in 100 mls @ 100 mls/hr 11/18/24 18:00 Vibramycin 100 Mg/Ns 100 Ml IVPB Q24H SUPRIYA Losartan Potassium 50 mg 11/18/24 09:05 11/18/24 10:39 Losartan Potassium 50 Mg Tablet PO 50 mg DAILY SUPRIYA Administration Perflutren Lipid Microsphere 0 ml 11/18/24 02:13 Perflutren Lipid Microspheres 1.5 Ml Vial Diluted To 10 Ml Total Volume IV PUSH 11/21/24 02:13 ONCE PRN adequate visualization Protocol Perflutren Lipid Microsphere 0 ml 11/18/24 09:00 Perflutren Lipid Microspheres 1.5 Ml Vial Diluted To 10 Ml Total Volume IV PUSH 11/21/24 09:00 ONCE PRN adequate visualization Protocol Radiology Results: ITS Impressions Chest X-Ray 11/17/24 12:34 Impression: Right upper lobe pneumonia. Chest CTA 11/17/24 16:07 IMPRESSION: No CT evidence of acute pulmonary embolus. Right upper and middle lobe opacities likely representing infection and/or aspiration. Mediastinal lymphadenopathy. Small bilateral pleural effusions. Labs Labs: Laboratory Results - last 24 hr 11/17/24 11/18/24 11/18/24 16:56 02:01 08:58 WBC 11.1 H RBC 5.09 Hgb 14.4 Hct 43.7 MCV 85.9 MCH 28.3 MCHC 33.0 RDW 14.3 Plt Count 311 MPV 10.0 Immature Gran % (Auto) 0.3 Neut % (Auto) 67.0 Lymph % (Auto) 20.1 [place] % (Auto) 10.8 H Eos % (Auto) 1.3 Baso % (Auto) 0.5 Lymph # (Auto) 2.22 [place] # (Auto) 1.2 H Eos # (Auto) 0.1 Baso # (Auto) 0.1 Abs Immat Gran (auto) 0.03 Absolute Neuts (auto) 7.4 H Absolute Nucleated RBC 0.000 Nucleated RBC % 0.0 APTT 36.2 44.8 H Troponin I 0.128 H* 0.122 H*
[2024-11-18] MEDS: DOXYCYCLINE 100 MG/NS 100 ML 100 MG/100 ML BAG IVPB (17:34)
[2024-11-18 20:31] LABS: MRSA (PCR) NOT DETECTED (NOT DETECTE)
[2024-11-18] MEDS: DOXYCYCLINE HYCLATE 100 MG TABLET PO (20:40)
[2024-11-19] VITALS (23 sets, daily range): BP systolic 118–160; BP diastolic 62–96; PULSE 65–79; RESP 13–20; TEMP 36.4–37.1; O2SAT 95–99
[2024-11-19 05:27] LABS: Basophils Absolute Auto 0.1 K/mm3 (0.0-0.1); Basophils Percent Auto 0.9 % (0.2-1.2); Eosinophils Absolute Auto 0.4 K/mm3 (0-0.3); Eosinophils Percent Auto 4.3 % (0-4.4); Hematocrit 42.6 % (42.0-52.0); Hemoglobin 13.7 g/dL (14.0-18.0); Immature Granulocyte Absolute 0.02 K/mm3 (0.00-0.031); Immature Granulocyte Percent A 0.2 % (0-0.5); Lymphocytes Absolute Auto 2.02 K/mm3 (0.9-3.2); Lymphocytes Percent Auto 24.7 % (18.3-44.2); Mean Corpuscular HGB Conc 32.2 g/dl (32-36); Mean Corpuscular Hemoglobin 28.1 pg (26-34); Mean Corpuscular Volume 87.5 fl (80-100); Mean Platelet Volume 10.7 fl (7.4-10.4); Monocytes Absolute Auto 1.1 K/mm3 (0.1-0.6); Neutrophils Absolute Auto 4.6 K/mm3 (1.3-6.7); Neutrophils Percent Auto 55.9 % (45.5-73.1); Platelet Count Result 306 k/mm3 (150-375); Red Blood Count 4.87 M/mm3 (4.6-6.20); Red Cell Distribution Width 14.6 % (11.5-14.5); White Blood Count 8.2 K/mm3 (4.5-10.0)
[2024-11-19 05:32] LABS: Anion Gap -1 mmol/L (4-12); Blood Urea Nitrogen 21 mg/dL (9-20); Calcium 8.8 mg/dL (8.4-10.2); Carbon Dioxide 28 mmol/L (22-30); Chloride 110 mmol/L (98-107); Estimated CRCL calculation 88 ml/min; Estimated Glomerular Filt Rate > 60; Glucose 97 mg/dL (65-110); Magnesium 2.2 mg/dL (1.6-2.3); Phosphorus 3.3 mg/dL (2.5-4.5); Potassium 3.9 mmol/L (3.4-5.0); Sodium 137 mmol/L (137-145)
[2024-11-19] MEDS: carvediloL 12.5 MG TABLET PO (09:33)
[2024-11-19] MEDS: ASPIRIN 81 MG CHEWABLE TABLET PO (09:33)
[2024-11-19] MEDS: FUROSEMIDE 20 MG TABLET PO (09:33)
[2024-11-19] MEDS: SPIRONOLACTONE 12.5 MG TABLET PO (09:33)
[2024-11-19] MEDS: LOSARTAN POTASSIUM 50 MG TABLET PO (09:33)
[2024-11-19] MEDS: DOXYCYCLINE HYCLATE 100 MG TABLET PO (09:34)
[2024-11-19] MEDS: ATORVASTATIN 40 MG TABLET 80 MG PO (09:34)
--- NOTE | 2024-11-19 11:46 | P.SEDATION_ITS ---
Moderate Sedation Note-Pt Data Patient Data Diagnosis: NSTEMI Cardiomyopathy Procedure to be performed/Plan: Left heart catheterization Coronary angiography Allergies Allergy/AdvReac Type Severity Reaction Status Date / Time poison mateo extract Allergy Intermediate HIVES Verified 08/19/24 15:08 poison oak extract Allergy Unknown Unknown Verified 08/19/24 15:08 Home Medications ?Medication ?Instructions ?Recorded ?Confirmed ?Type No Home Medications 11/17/24 11/17/24 History Current Medications: Active Medications Acetaminophen (Acetaminophen 325 Mg Tablet) 650 mg PO Q4H PRN PRN Reason: Mild Pain (1-3) or Fever Aspirin (Aspirin 81 Mg Chewable Tablet) 81 mg PO DAILY@0800 [facility] Last Admin: 11/19/24 09:33 Dose: 81 mg Atorvastatin Calcium (Atorvastatin 40 Mg Tablet) 80 mg PO DAILY [facility] Last Admin: 11/19/24 09:34 Dose: 80 mg Carvedilol (Carvedilol 12.5 Mg Tablet) 12.5 mg PO Q12HR [facility] Last Admin: 11/19/24 09:33 Dose: 12.5 mg Docusate Sodium (Docusate Sodium 100 Mg Capsule) 100 mg PO DAILY [facility] Last Admin: 11/19/24 09:33 Dose: Not Given Doxycycline Hyclate (Doxycycline Hyclate 100 Mg Tablet) 100 mg PO Q12HR [facility] Last Admin: 11/19/24 09:34 Dose: 100 mg Enoxaparin Sodium (Enoxaparin 40 Mg/0.4 Ml Syringe) 40 mg SUB-Q DAILY [facility] Last Admin: 11/19/24 10:15 Dose: Not Given Furosemide (Furosemide 20 Mg Tablet) 20 mg PO DAILY [facility] Last Admin: 11/19/24 09:33 Dose: 20 mg Guaifenesin/Dextromethorphan (Guaifenesin/Dextromethorphan 10 Ml Udc) 10 ml PO Q4H PRN PRN Reason: Cough Last Admin: 11/18/24 13:40 Dose: 10 ml Ceftriaxone Sodium (Rocephin 1 Gm/Ns 50 Ml) 1 gm in 50 mls @ 100 mls/hr IVPB Q24H [facility] Last Infusion: 11/18/24 16:39 Dose: Infused Losartan Potassium (Losartan Potassium 50 Mg Tablet) 50 mg PO DAILY [facility] Last Admin: 11/19/24 09:33 Dose: 50 mg Perflutren Lipid Microsphere (Perflutren Lipid Microspheres 1.5 Ml Vial Diluted To 10 Ml Total Volume) 0 ml IV PUSH ONCE PRN; Protocol PRN Reason: adequate visualization Stop: 11/21/24 02:13 Perflutren Lipid Microsphere (Perflutren Lipid Microspheres 1.5 Ml Vial Diluted To 10 Ml Total Volume) 0 ml IV PUSH ONCE PRN; Protocol PRN Reason: adequate visualization Stop: 11/21/24 09:00 Spironolactone (Spironolactone 12.5 Mg Tablet) [facility] [place] [facility] Admin: 11/19/24 09:33 Dose: 12.5 mg Sedation/Anesthesia: No previous sedation/anesthesia problems (including family history). [facility] Past Medical History Medical History Hypertension Heart failure diagnosed approximately 2017 Surgical History Surgical History History of cardiac cath approx 2017 H/O lumbar discectomy Social History Social History Smoking status: Never smoker Alcohol intake: current Drinks per week: 1 Substance use: never Substance use type: does not use Do You Feel Safe in your Home?: Yes Lack of Transportation: No Lack of Food: Never True Current Housing: I Have Housing Concerned About Future Housing: No Difficulty Paying Gas/Electric Bills: No Difficulty Paying for Meds: No Currently Unemployed: No Education: High School Diploma/GED Difficulty w/ Childcare or Family Care: No Living arrangements: with family Spiritual care concerns: No Mod Sed Physical Exam Physical Exam Pre Procedural Exam: Normal: Appearance, Eyes, Ears, Nose, Neck, Throat, Airway, Lungs, Heart Size, Heart Rate, Heart Rhythm, Neuro Exam, Abdomen, Liver, Kidneys, Spleen, Breasts, Genitalia, Extremities and Skin Hours since solid foods: 12 Hours since liquid intake: 12 Mallampati Classification: class II Internal Medicine - PN: Obj Da Vital Signs Vital Signs: Vital Signs - 24 hr 11/18/24 12:00 11/18/24 12:00 11/18/24 14:00 Temperature Pulse Rate 90 93 76 Respiratory Rate 20 Blood Pressure 142/76 H Pulse Oximetry 96 Oxygen Delivery 11/18/24 15:57 11/18/24 16:00 11/18/24 16:00 Temperature 37.1 C Pulse Rate 71 74 Respiratory Rate 18 Blood Pressure 130/68 Pulse Oximetry 98 Oxygen Delivery Room Air 11/18/24 18:00 11/18/24 20:00 11/18/24 20:00 Temperature Pulse Rate 72 72 72 Respiratory Rate 18 Blood Pressure Pulse Oximetry 99 Oxygen Delivery Room Air 11/18/24 20:27 11/18/24 20:40 11/18/24 22:00 Temperature 37.1 C Pulse Rate 75 98 76 Respiratory Rate 18 Blood Pressure 149/104 H Pulse Oximetry 99 Oxygen Delivery 11/19/24 00:00 11/19/24 00:00 11/19/24 00:00 Temperature 37.1 C Pulse Rate 66 71 71 Respiratory Rate 18 18 Blood Pressure 124/62 Pulse Oximetry 97 97 Oxygen Delivery Room Air 11/19/24 01:49 11/19/24 04:00 11/19/24 04:00 Temperature Pulse Rate 68 72 72 Respiratory Rate 18 Blood Pressure Pulse Oximetry 98 Oxygen Delivery Room Air 11/19/24 04:09 11/19/24 06:00 11/19/24 08:00 Temperature 37.1 C 36.6 C Pulse Rate 69 72 69 Respiratory Rate 18 20 Blood Pressure 118/66 144/95 H Pulse Oximetry 98 99 Oxygen Delivery 11/19/24 08:00 11/19/24 09:33 11/19/24 10:00 Temperature Pulse Rate 74 74 73 Respiratory Rate Blood Pressure Pulse Oximetry Oxygen Delivery Intake/Output Intake/Output: Intake & Output 11/16/24 11/17/24 11/18/24 11/19/24 23:59 23:59 23:59 23:59 Intake Total 150 2201.2 300 Output Total 700 Balance 150 2201.2 -400 Meds/Results Medications: Active Medications Generic Name Dose Route Start Last Admin Trade Name Freq PRN Reason Stop Dose Admin Acetaminophen 650 mg 11/17/24 16:23 Acetaminophen 325 Mg Tablet PO Q4H PRN Mild Pain (1-3) or Fever Aspirin 81 mg 11/18/24 08:20 11/19/24 09:33 Aspirin 81 Mg Chewable Tablet PO 81 mg DAILY@0800 SUPRIYA Administration Atorvastatin Calcium 80 mg 11/18/24 09:05 11/19/24 09:34 Atorvastatin 40 Mg Tablet PO 80 mg DAILY SUPRIYA Administration Carvedilol 12.5 mg 11/18/24 09:05 11/19/24 09:33 Carvedilol 12.5 Mg Tablet PO 12.5 mg Q12HR SUPRIYA Administration Docusate Sodium 100 mg 11/18/24 09:00 11/19/24 09:33 Docusate Sodium 100 Mg Capsule PO Not Given DAILY SUPRIYA Doxycycline Hyclate 100 mg 11/18/24 21:00 11/19/24 09:34 Doxycycline Hyclate 100 Mg Tablet PO 100 mg Q12HR SUPRIYA Administration Enoxaparin Sodium 40 mg 11/19/24 09:00 11/19/24 10:15 Enoxaparin 40 Mg/0.4 Ml Syringe SUB-Q Not Given DAILY SUPRIYA Furosemide 20 mg 11/19/24 09:15 11/19/24 09:33 Furosemide 20 Mg Tablet PO 20 mg DAILY SUPRIYA Administration Guaifenesin/Dextromethorphan 10 ml 11/18/24 02:59 11/18/24 13:40 Guaifenesin/Dextromethorphan 10 Ml Udc PO 10 ml Q4H PRN Administration Cough Ceftriaxone Sodium 1 gm in 50 mls @ 100 mls/hr 11/18/24 16:00 11/18/24 16:39 Rocephin 1 Gm/Ns 50 Ml IVPB Infused Q24H SUPRIYA Infusion Losartan Potassium 50 mg 11/18/24 09:05 11/19/24 09:33 Losartan Potassium 50 Mg Tablet PO 50 mg DAILY SUPRIYA Administration Perflutren Lipid Microsphere 0 ml 11/18/24 02:13 Perflutren Lipid Microspheres 1.5 Ml Vial Diluted To 10 Ml Total Volume IV PUSH 11/21/24 02:13 ONCE PRN adequate visualization Protocol Perflutren Lipid Microsphere 0 ml 11/18/24 09:00 Perflutren Lipid Microspheres 1.5 Ml Vial Diluted To 10 Ml Total Volume IV PUSH 11/21/24 09:00 ONCE PRN adequate visualization Protocol Spironolactone 12.5 mg 11/19/24 09:00 11/19/24 09:33 Spironolactone 12.5 Mg Tablet PO 12.5 mg QAM SUPRIYA Administration Radiology Results: ITS Impressions Chest X-Ray 11/17/24 12:34 Impression: Right upper lobe pneumonia. Chest CTA 11/17/24 16:07 IMPRESSION: No CT evidence of acute pulmonary embolus. Right upper and middle lobe opacities likely representing infection and/or aspiration. Mediastinal lymphadenopathy. Small bilateral pleural effusions. Labs 11/19/24 04:27 11/19/24 04:27 Labs: Laboratory Results - last 24 hr 11/18/24 11/19/24 18:23 04:27 WBC 8.2 RBC 4.87 Hgb 13.7 L Hct 42.6 MCV 87.5 MCH 28.1 MCHC 32.2 RDW 14.6 H Plt Count 306 MPV 10.7 H Immature Gran % (Auto) 0.2 Neut % (Auto) 55.9 Lymph % (Auto) 24.7 [place] % (Auto) 14.0 H Eos % (Auto) 4.3 Baso % (Auto) 0.9 Lymph # (Auto) 2.02 [place] # (Auto) 1.1 H Eos # (Auto) 0.4 H Baso # (Auto) 0.1 Abs Immat Gran (auto) 0.02 Absolute Neuts (auto) 4.6 Absolute Nucleated RBC 0.000 Nucleated RBC % 0.0 Sodium 137 Potassium 3.9 Chloride 110 H Carbon Dioxide 28 Anion Gap -1 L BUN 21 H Creatinine 0.90 Estim Creat Clear Calc 88 Estimated GFR > 60 Glucose 97 Calcium 8.8 Phosphorus 3.3 Magnesium 2.2 Nasal MRSA (PCR) Not detected ASA Classification/Sedation ASA Classification/Sedation ASA Class: III Emergent: No Risks: Risks, benefits and alternatives explained and patient/family accepted plan for sedation. Patient re-evaluated immediately prior to sedation.
--- NOTE | 2024-11-19 11:49 | P.PCNCC_ITS ---
Cardiac Cath Procedure Note Date of procedure:: 11/19/24 Performing physician:: Keith Mathews MD Indication:: NSTEMI Cardiomyopathy Procedure Procedure performed:: Left heart catheterization Coronary angiography Sedation/Medication given:: Versed 1 mg Fentanyl 25 mcg Access site:: Right radial artery Estimated blood loss:: 5 cc Procedure note:: The risk and benefits of the procedure were discussed with the patient informed consent was signed. Right radial access was taken and the 5-6 [place] sheath was placed. A JL4 catheter was traversed over a J-wire to engage the left main and multiple images were taken in different projections. The JR4 catheter was then goes to engage the ostium of the right coronary artery and multiple images were taken. Aortic valve was traversed using a J-wire and a JR4 catheter and LVEDP was measured. Left ventriculogram was not done because of a recent echo done Sedation start time 1100 H Sedation end time 11:20 a.m. H Moderate sedation was given under my supervision and the patient was monitored by an independent personnel Findings:: 1. LVEDP 29 mm Hg; no significant LV-AO gradient on pullback 2. Coronary angiography: Right dominant system with no ramus intermedius Left main: Large caliber very short vessel divides into left anterior descending and left circumflex branches. No angiographic evidence of atherosclerotic disease Left anterior descending: Large caliber artery which teaches the apex and gives rise to several small diagonal branches. Luminal irregularities in the LAD Left circumflex artery: Large caliber nondominant vessel which gives rise to 2 small marginal branches. The ostial circumflex has 20% stenosis Right coronary artery: Large caliber dominant vessel which divides into PDA and PLV branches. Prox RCA has a 40-50% stenosis with SVETA 3 flow Conclusion:: 1. Nonobstructive single-vessel disease 2. Nonischemic cardiomyopathy 3. Elevated LVEDP Assessment and Plan Assessment and plan (1) NICM (nonischemic cardiomyopathy): Code(s): I42.8 - Other cardiomyopathies Status: Acute Plan -aggressive risk factor modification -guideline directed medical therapy for heart failure -repeat echo in 3 months
[2024-11-19] MEDS: SODIUM CHLORIDE 0.9% IV 1,000 ML 125 ML IV CONT (13:09)
--- NOTE | 2024-11-19 14:17 | SUR.PHASEII ---
Normal Saline IV fluids d/c and stopped per MD request/order.
--- NOTE | 2024-11-19 14:21 | SUR.PHASEII ---
Phone report to room 203 nurse.
--- NOTE | 2024-11-19 14:49 | P.PNCROSS_ITS ---
Event Note Event Note Event Note: Reviewed with Dr Keith Mathews no need for consult on behalf of Dr Fajardo on this p atient.
--- NOTE | 2024-11-19 16:10 | PM.PNCARD ---
Progress Note: A&P Assessment and Plan (1) NICM (nonischemic cardiomyopathy): Code(s): I42.8 - Other cardiomyopathies Status: Acute Plan 1. New on set HF NYHA II, Stage C 2. NICM 3. Non obstructive CAD 4. HTN 5. Hyperlipidemia -aggressive risk factor modification -guideline directed medical therapy for heart failure; continue beta-cosmo, ARB, MRA, diuretics -continue aspirin statin -BMP to be done in a week for renal function and potassium levels -repeat echo in 3 months -cardiology outpatient follow-up in 1-2 weeks Subjective Date/time seen: 11/19/24 16:10 Interval history: s/p LHC, non obstructive ds in pRCA Review of Systems Review of Systems: 12 systems were reviewed and are negative except for as per HPI. Exam Narrative: General: well appearing, appears stated age. HEENT: normocephalic, atraumatic. Mucous membranes moist. EOMI, PERRLA, bilateral sclera anicteric, no conjunctival injection. Neck supple without JVD, lymphadenopathy, or bruit. Respiratory: clear to ascultation bilaterally. No rales/rhonic/wheezes. Cardiovascular: Regular rate and rhythm, normal S1-S2 upon ascultation. No murmurs, rubs, or clicks. PMI is nondisplaced, capillary refill less than 3 second. Abdomen: Soft, round, no pulsatile masses, nondistended and nontender. No rebound, no guarding. No CVA tenderness, no hepatosplenomegaly. Bowel sounds present to all four quadrants. No high pitch or tinkling sounds, resonant to percussion. Extremities: No cyanosis, clubbing, or edema present. Pulses are palpable 2/2. Active ROM to all four extremities. Neuro: Alert and orientated x 4. PERRLA. Cranial nerves 2-12 intact without focal deficit. Skin: Warm, dry, and intact, without rash, erythema, or lesion. Psych: pleasant, cooperative, normal speech, normal affect, no hallucinations, no dysarthia Objective Data Vital Signs Vital Signs: Vital Signs - 24 hr 11/18/24 18:00 11/18/24 20:00 11/18/24 20:00 Temperature Pulse Rate 72 72 72 Respiratory Rate 18 Blood Pressure Pulse Oximetry 99 Oxygen Delivery Room Air 11/18/24 20:27 11/18/24 20:40 11/18/24 22:00 Temperature 37.1 C Pulse Rate 75 98 76 Respiratory Rate 18 Blood Pressure 149/104 H Pulse Oximetry 99 Oxygen Delivery 11/19/24 00:00 11/19/24 00:00 11/19/24 00:00 Temperature 37.1 C Pulse Rate 66 71 71 Respiratory Rate 18 18 Blood Pressure 124/62 Pulse Oximetry 97 97 Oxygen Delivery Room Air 11/19/24 01:49 11/19/24 04:00 11/19/24 04:00 Temperature Pulse Rate 68 72 72 Respiratory Rate 18 Blood Pressure Pulse Oximetry 98 Oxygen Delivery Room Air 11/19/24 04:09 11/19/24 06:00 11/19/24 08:00 Temperature 37.1 C 36.6 C Pulse Rate 69 72 69 Respiratory Rate 18 20 Blood Pressure 118/66 144/95 H Pulse Oximetry 98 99 Oxygen Delivery 11/19/24 08:00 11/19/24 09:33 11/19/24 10:00 Temperature Pulse Rate 74 74 73 Respiratory Rate Blood Pressure Pulse Oximetry Oxygen Delivery 11/19/24 11:46 11/19/24 11:46 11/19/24 12:00 Temperature Pulse Rate 69 79 73 Respiratory Rate 18 14 14 Blood Pressure 132/93 H 133/89 139/89 Pulse Oximetry 97 97 97 Oxygen Delivery Room Air Room Air 11/19/24 12:15 11/19/24 12:30 11/19/24 12:45 Temperature Pulse Rate 66 67 69 Respiratory Rate 13 20 19 Blood Pressure 133/85 129/89 136/76 Pulse Oximetry 95 97 96 Oxygen Delivery Room Air Room Air Room Air 11/19/24 13:00 11/19/24 13:15 11/19/24 13:30 Temperature Pulse Rate 70 67 66 Respiratory Rate 18 20 15 Blood Pressure 145/85 H 160/91 H 160/96 H Pulse Oximetry 96 95 96 Oxygen Delivery Room Air Room Air Room Air 11/19/24 13:45 11/19/24 14:00 11/19/24 14:15 Temperature Pulse Rate 69 71 69 Respiratory Rate 20 16 20 Blood Pressure 142/69 H 139/78 127/70 Pulse Oximetry 95 95 96 Oxygen Delivery Room Air Room Air Room Air 11/19/24 14:47 11/19/24 15:51 11/19/24 15:58 Temperature 36.6 C 36.4 C L Pulse Rate 69 69 67 Respiratory Rate 20 20 Blood Pressure 134/80 137/83 Pulse Oximetry 96 98 Oxygen Delivery Intake/Output Intake/Output: Intake & Output 11/16/24 11/17/24 11/18/24 11/19/24 23:59 23:59 23:59 23:59 Intake Total 150 2201.2 780 Output Total 700 Balance 150 2201.2 80 Meds/Results Medications: Active Medications Generic Name Dose Route Start Last Admin Trade Name Freq PRN Reason Stop Dose Admin Acetaminophen 650 mg 11/17/24 16:23 Acetaminophen 325 Mg Tablet PO Q4H PRN Mild Pain (1-3) or Fever Aspirin 81 mg 11/18/24 08:20 11/19/24 09:33 Aspirin 81 Mg Chewable Tablet PO 81 mg DAILY@0800 SUPRIYA Administration Atorvastatin Calcium 80 mg 11/18/24 09:05 11/19/24 09:34 Atorvastatin 40 Mg Tablet PO 80 mg DAILY SUPRIYA Administration Carvedilol 12.5 mg 11/18/24 09:05 11/19/24 09:33 Carvedilol 12.5 Mg Tablet PO 12.5 mg Q12HR SUPRIYA Administration Docusate Sodium 100 mg 11/18/24 09:00 11/19/24 09:33 Docusate Sodium 100 Mg Capsule PO Not Given DAILY SUPRIYA Doxycycline Hyclate 100 mg 11/18/24 21:00 11/19/24 09:34 Doxycycline Hyclate 100 Mg Tablet PO 100 mg Q12HR SUPRIYA Administration Enoxaparin Sodium 40 mg 11/19/24 09:00 11/19/24 10:15 Enoxaparin 40 Mg/0.4 Ml Syringe SUB-Q Not Given DAILY SUPRIYA Furosemide 20 mg 11/19/24 09:15 11/19/24 09:33 Furosemide 20 Mg Tablet PO 20 mg DAILY SUPRIYA Administration Guaifenesin/Dextromethorphan 10 ml 11/18/24 02:59 11/18/24 13:40 Guaifenesin/Dextromethorphan 10 Ml Udc PO 10 ml Q4H PRN Administration Cough Ceftriaxone Sodium 1 gm in 50 mls @ 100 mls/hr 11/18/24 16:00 11/18/24 16:39 Rocephin 1 Gm/Ns 50 Ml IVPB Infused Q24H SUPRIYA Infusion Losartan Potassium 50 mg 11/18/24 09:05 11/19/24 09:33 Losartan Potassium 50 Mg Tablet PO 50 mg DAILY SUPRIYA Administration Perflutren Lipid Microsphere 0 ml 11/18/24 02:13 Perflutren Lipid Microspheres 1.5 Ml Vial Diluted To 10 Ml Total Volume IV PUSH 11/21/24 02:13 ONCE PRN adequate visualization Protocol Perflutren Lipid Microsphere 0 ml 11/18/24 09:00 Perflutren Lipid Microspheres 1.5 Ml Vial Diluted To 10 Ml Total Volume IV PUSH 11/21/24 09:00 ONCE PRN adequate visualization Protocol Spironolactone 12.5 mg 11/19/24 09:00 11/19/24 09:33 Spironolactone 12.5 Mg Tablet PO 12.5 mg QAM SUPRIYA Administration Radiology Results: ITS Impressions Chest X-Ray 11/17/24 12:34 Impression: Right upper lobe pneumonia. Chest CTA 11/17/24 16:07 IMPRESSION: No CT evidence of acute pulmonary embolus. Right upper and middle lobe opacities likely representing infection and/or aspiration. Mediastinal lymphadenopathy. Small bilateral pleural effusions. Labs Labs: Laboratory Results - last 24 hr 11/18/24 11/19/24 18:23 04:27 WBC 8.2 RBC 4.87 Hgb 13.7 L Hct 42.6 MCV 87.5 MCH 28.1 MCHC 32.2 RDW 14.6 H Plt Count 306 MPV 10.7 H Immature Gran % (Auto) 0.2 Neut % (Auto) 55.9 Lymph % (Auto) 24.7 [place] % (Auto) 14.0 H Eos % (Auto) 4.3 Baso % (Auto) 0.9 Lymph # (Auto) 2.02 [place] # (Auto) 1.1 H Eos # (Auto) 0.4 H Baso # (Auto) 0.1 Abs Immat Gran (auto) 0.02 Absolute Neuts (auto) 4.6 Absolute Nucleated RBC 0.000 Nucleated RBC % 0.0 Sodium 137 Potassium 3.9 Chloride 110 H Carbon Dioxide 28 Anion Gap -1 L BUN 21 H Creatinine 0.90 Estim Creat Clear Calc 88 Estimated GFR > 60 Glucose 97 Calcium 8.8 Phosphorus 3.3 Magnesium 2.2 Nasal MRSA (PCR) Not detected
--- NOTE | 2024-11-19 16:12 | PM.DS ---
DS: Admitting Diagnosis Discharge Date 11/19/24 Admitting Diagnosis VILLEGAS and cough DS: Discharge Diagnosis Discharge Diagnosis (1) Right upper lobe pneumonia: Code(s): J18.9 - Pneumonia, unspecified organism Status: Acute (2) Heart failure: Code(s): I50.9 - Heart failure, unspecified Status: Acute (3) Type 2 WI (myocardial infarction): Code(s): I21.A1 - Myocardial infarction type 2 Status: Acute (4) Leukocytosis: Code(s): D72.829 - Elevated white blood cell count, unspecified Status: Acute (5) NICM (nonischemic cardiomyopathy): Code(s): I42.8 - Other cardiomyopathies Status: Acute (6) CAD (coronary artery disease): Code(s): I25.10 - Atherosclerotic heart disease of [place] coronary artery without angina pectoris Status: Acute (7) Hypertension: Code(s): I10 - Essential (primary) hypertension Status: Acute (8) Hyperlipidemia: Code(s): E78.5 - Hyperlipidemia, unspecified Status: Acute DS: Summary Hospital Course Reason for hospitalization: 59yo male with history of NICMP here for VILLEGAS and cough. Please see H&P for details. Hospital Course: Patient presented with dyspnea and cough. White count was 15.8K. No fevers. D-dimer positive. CTA of the chest showed no PE but did show right upper lobe and right middle lobe opacities representing infection and/or aspiration. He also had mediastinal lymphadenopathy and small bilateral pleural effusions. COVID, influenza and RSV PCR were negative. BNP was 4390. Troponins are elevated but relatively flat. He was started on Rocephin and doxycycline in the ED and continued after admission. He remained on room air. He remained afebrile. White count trended downward. MRSA nasal swab was negative. Speech therapy evaluation showed no concerns for aspiration. He had elevated BNP and troponins. EKG showed sinus tachycardia, left atrial enlargement and nonspecific T-wave changes with poor R-wave progression. Repeat EKG showed no change. Patient denied chest pain. Concern for NSTEMI so heparin drip started. Cardiology consulted. Overall, felt he had a Type II WI. He received full aspirin in the ED. Echo showing enlarged LV with reduced systolic fxn (EF 35-40%) and hypokinesis. Normal diastolic fxn and mild valvular disease. Patient has a history of NICMP but was on no medications on admission. [place] he had acute on chronic systolic CHF. He was treated with lasix. He was started on Coreg, Cozaar, spironolactone and Lipitor. Patient underwent LHC showing nonobstructive single-vessel CAD, nonischemic cardiomyopathy and elevated LVEDP. He overall did well and was able to be discharged home on 11/19/24. Status at Discharge Cognitive/behavioral status at discharge: stable Time Spent with Patient Time attestation: Total time spent providing and/or coordinating discharge services: 36 minutes Time spent: Greater than 30 minutes Exam Narrative: AF 97.5 137/83 67 20 98% ra Gen - NARD Chest - mild right base crackles o/w clear CV - RRR S1/S2. Telemetry showing no significant dysrhythmias Abd - Soft, NT/ND, Positive BS Ext - No pedal edema Psych - Nml mood and affect Skin - Warm and dry DS: Data Data Completed and Pending Labs on day of discharge: Labs from last 24 hours 11/19/24 11/18/24 04:27 18:23 WBC 8.2 RBC 4.87 Hgb 13.7 L Hct 42.6 MCV 87.5 MCH 28.1 MCHC 32.2 RDW 14.6 H Plt Count 306 MPV 10.7 H Immature Gran % (Auto) 0.2 Neut % (Auto) 55.9 Lymph % (Auto) 24.7 [place] % (Auto) 14.0 H Eos % (Auto) 4.3 Baso % (Auto) 0.9 Lymph # (Auto) 2.02 [place] # (Auto) 1.1 H Eos # (Auto) 0.4 H Baso # (Auto) 0.1 Abs Immat Gran (auto) 0.02 Absolute Neuts (auto) 4.6 Absolute Nucleated RBC 0.000 Nucleated RBC % 0.0 Sodium 137 Potassium 3.9 Chloride 110 H Carbon Dioxide 28 Anion Gap -1 L BUN 21 H Creatinine 0.90 Estim Creat Clear Calc 88 Estimated GFR > 60 Glucose 97 Calcium 8.8 Phosphorus 3.3 Magnesium 2.2 Nasal MRSA (PCR) Not detected Preliminary micro results at discharge 11/17/24 16:26 Blood Culture - Preliminary Blood 11/17/24 15:17 Blood Culture - Preliminary Blood Discharge Plan Discharge Attending physician on discharge: Raj Perla Consulting providers: Keith Mathews Discharging Clinician: Raj Perla Anticipated Discharge Date/Time: 11/19/24 16:29 Patient Disposition: Home, Self-Care Activity: as tolerated Diet: heart healthy Discharge Instructions: Please avoid large gathering, wear face coverings in public and practice social distance. Check blood pressure 1 to 2 times a day. Record and bring into your doctor for review. Call your doctor if your blood pressure is greater than 180/110. Please complete your antibiotic course even if you are starting to feel well. Take precautions to avoid falls. Rise slowly from a lying or sitting position. Pause before standing or walking. Check daily morning weights after voiding. Call your doctor if you gain more than 3 lb in 2 days or 5 lb in 1 week. Contact your doctor or call 911 and come to the Emergency Room if you have increasing shortness of breath, fevers, lightheadedness with standing or other worrisome symptoms. Avoid NSAIDs (ibuprofen, naproxen, Aleve). Tylenol is safe to take. Follow-up with your primary care provider in 1-2 weeks. Please call for appointment. Follow-up with [facility] in 1-2 weeks. Please call for an appointment. -- Talk with your [facility] about having your Heart ultrasound (Echo) repeated in 3 months. Thank you for using [facility] for your health care needs. Patient Instructions: Antibiotic Form, Heparin (By injection), Heart Failure (GEN), Moderate Sedation (DC), After Radial Heart Catheterization (GEN), High Troponin Levels (GEN) Patient Language: [place] Stand Alone Forms: General Discharge Information Follow-up/Referrals: Jorge Fajardo DO [Primary Care Provider] - Call for Appointment Discharge Medications: New aspirin [Children's Aspirin] 81 mg Tablet,Chewable 81 mg PO DAILY@0800 Qty: 30 1RF carvedilol [Coreg] 12.5 mg Tablet 12.5 mg PO Q12HR Qty: 60 1RF doxycycline hyclate 100 mg Tablet 100 mg PO Q12HR Qty: 6 0RF spironolactone 25 mg tablet 12.5 mg PO DAILY Qty: 30 1RF atorvastatin 80 mg tablet 80 mg PO DAILY Qty: 30 1RF losartan [Cozaar] 50 mg Tablet 50 mg PO DAILY Qty: 30 1RF spironolactone 25 mg tablet 12.5 mg PO DAILY Qty: 30 1RF furosemide 40 mg Tablet 40 mg PO DAILY Qty: 30 1RF amoxicillin-pot clavulanate 875-125 mg tablet 1 tablet PO Q12H Qty: 10 0RF Continued No Home Medications Other Ambulatory Orders: Basic Metabolic Panel (Routine) Timeframe: 1 Week Location: Determined by Patient Ordered By: Raj Perla Date of admission: 11/17/24 18:06 Primary Care Provider: Jorge Fajardo Admitting Provider: Tha Crow Attending physician on admission: Tha Crow Condition: Stable Hospitalist MIPS Heart Failure (Exclusion) Patient has history of Heart Transplant or Left Ventricular Assistive Device?: No IF YES, STOP HERE Heart Failure (Qualifier) Patient has current or prior documentation of LVEF less than or equal to 40%, or mod/servere depressed LVSF?: Yes IF NO, STOP HERE If Yes, Heart Failure (Qualifier) Patient was prescribed or already taking an Angiotensin-Converting Enzyme (TABATHA) Inhibitor, or Antiotensin Receptor Rah (ARB): Yes Patient was prescribed or already taking bisoprolol, carvedilol, or sustained release metoprolol succinate: Yes
== END 2024-11-19 18:04 | disposition home or self-care (01) | DRG 190 ==
LOC: ANHED 14:03 → ANHIMU 17:50
PROVIDERS: Internal Medicine Interventional Cardiology; Nurse Practitioner Gerontology; Physician Assistant; Admitting Provider Internal Medicine; Emergency Provider Student in an Organized Health Care Education/Training Program; PCP Internal Medicine Cardiovascular Disease; Visit Provider Internal Medicine
PROC: 4A023N7 Measurement of Cardiac Sampling and Pressure, Left Heart, Percutaneous Approach (ICD-10-PCS; CPT 93452; principal; 2024-11-19 10:30)
DX: I25.10 Atherosclerotic heart disease of native coronary artery without angina pectoris (principal); I21.A1 Myocardial infarction type 2; I10 Essential (primary) hypertension; J18.9 Pneumonia, unspecified organism; I42.8 Other cardiomyopathies; I11.0 Hypertensive heart disease with heart failure; I50.23 Acute on chronic systolic (congestive) heart failure; E78.5 Hyperlipidemia, unspecified; Z20.822 Contact with and (suspected) exposure to COVID-19
CPT/HCPCS: 36415; 71046; 71275; 80048; 80053; 81001; 83735; 83880; 84100; 84484; 85025; 85380; 85610; 85730; 87040; 87637; 87641; 92610; 93005; 93306; 93458; 96365; 96367; 96375; 99285; A9270; C1769; C1887; C1894; G0378; J0696; J1644; J1940; J2003; J2250; J2305; J3010; J7030; J7040; Q9967